=== PATIENT | female | born 1965 | race Caucasian/White ===

== ENCOUNTER 2016-11-13 08:22 | Outpatient (RCR) | payer BC ==
--- OUTSIDE RECORDS SUMMARY | 2016-08-19 08:48 | XMS REPORT | Continuity of Care Document ---
Author Author [facility] Organization [facility] Address Unknown Phone Unavailable Care Team Providers Care Poster Name Role Phone Keara Espinoza PCP [phone] Source Comments Some departments are not documenting in the electronic medical record. If you do not see the information that you expected, contact Release of Information in the Health Information Management department at [phone] for further assistance in locating additional records.[facility] Active Allergies and Adverse Reactions Allergen Noted Date Severity Reactions Comments Adhesive Tape (Rosins) 03/07/2016 High SEE COMMENTS steri strips - blisters under and around strips Current Medications Prescription Sig. Disp. Refills Start End Date Status Date hydrochlorothiazide Take 25 mg by mouth Active (HYDRODIURIL) 25 mg daily. tablet POTASSIUM CHLORIDE Take 20 mEq by mouth Active (KLOR-CON M20 PO) twice daily. MULTIVITAMIN/IRON/FOLIC Take 1 Tab by mouth Active ACID (CENTRUM COMPLETE daily. PO) CALCIUM-VITAMIN D3 PO Take 500 mg by mouth Active twice daily. Oscal Calcium + Vitamin D3 oxyCODONE/acetaminophen Take 1-2 Tabs by mouth 40 Tab 0 03/08/20 Active (PERCOCET; ENDOCET; every 4 hours as needed 16 ROXICET) 5/325 mg tablet Earliest Fill Date: 03/08/16 senna (SENNA) 8.6 mg Take 1 Tab by mouth 90 Tab 3 03/08/20 Active tablet daily. 16 traMADol (ULTRAM) 50 mg Take 1 Tab by mouth every 30 Tab 0 03/08/20 Active tablet 6 hours as needed for 16 Pain. DESOGESTREL-ETHINYL Take by mouth daily. Active ESTRADIOL (ENSKYCE PO) aspirin EC 81 mg tablet Take 81 mg by mouth Active daily. 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 Left, grade 3, triple negative IDC (ER/[place] 0%, HER2 0+, Ki-67 63%) at 10:00 with an involved axillary lymph node, dx 09/2015 2. Billiesk negative HISTORY: Ms. Gamez is a female who presented to the [facility] on 11/08/2015 at age 50 for evaluation of left breast cancer. She first felt a left breast lump in August 2015. She saw her PCP in September 2015 who sent her for imaging. Left breast sono-guided biopsy at 6:00 10/11/15 ([place]) revealed fibrocystic breast tissue. Left breast sono-guided biopsy at 10:00 10/11/15 ([place]) revealed grade 3, triple negative invasive ductal carcinoma. Left axilla sono-guided biopsy 10/11/15 ([place]) revealed metastatic carcinoma. PET scan 10/23/15 ([place]) revealed no evidence of metastasis. She has a history of a left breast excision in 2001 which was a fibroadenoma. Ms. Gamez met with a medical oncologist closer to home who is planning neoadjuvant AC followed by taxotere/carbo. Genetic counseling/testing has been recommended and is scheduled in [place]. Ms. Gamez underwent left RSL lumpectomy/SLNB on 03/07/16. Final pathology revealed 1.8 cm tumor bed with 1.5 cm residual grade 3 triple negative IDC, largest foci was 6 mm; 5-60% residual viable cellularity; all margins over 2 mm; LVI absent; 1/22 positive ALNs with 2 mm metastasis, treatment effect present, no extranodal extension. BREAST IMAGING: Mammogram: -- Left diagnostic mammogram 10/06/15 ([place]) revealed a 2.4 cm rounded mass in the medial left breast corresponding with the patient's palpable finding. -- Bilateral diagnostic mammogram 11/08/15 () revealed in the left breast at 9-10:00 there was an ill-defined mass consistent with known malignancy measuring 2.6 cm. Inferiorly at 6:00 there was a clip marker from reported recent biopsy of benign area of fibrocystic change. An enlarged left axillary lymph node was partially visualized. The right breast appeared normal however, there were prominent right axillary lymph nodes. Ultrasound: -- Left breast ultrasound 10/06/15 ([place]) revealed a 1.5 cm hypoechoic mass at 10:00, 6 cm FTN in the area of the patient's palpable abnormality. There was an 8 mm somewhat lobulated hypoechoic mass at 6:00, 2 cm FTN. There was a 2 cm left axillary lymph node. -- Bilteral breast ultrasound 11/08/15 () revealed in the right axilla there was a single prominent lymph node with cortical thickness measuring up to 5 mm consistent with the appearance on mammography. This was mildly suspicious and ultrasound-guided biopsy is recommended. The remainder of the right axilla appeared normal. The known malignant mass at 10:00, 6 cm FTN measured 2.7 cm. The left axilla demonstrated multiple abnormal appearing lymph nodes. A clip marker was not identified with any of the lymph nodes. Reportedly, the patient's had prior positive biopsy in the left axilla. REPRODUCTIVE HEALTH: Age at first Menarche: 14 Age at First Live : 20 Age at Menopause: Premenopausal : 2 Para: 2 : N/A PROCEDURE: Left RSL lumpectomy/ALND, 03/07/16 PERTINENT PMH: HTN FAMILY HISTORY: No family history of breast, ovarian, prostate or pancreatic cancer PHYSICAL EXAM on PRESENTATION: Right - No palpable breast masses. No skin, nipple, or areolar change. Left - 3 cm mass at 10:00, 4 cm FTN. Palpable left axillary lymph node. No supraclavicular or right axillary adenopathy. MEDICAL ONCOLOGY: Dr. Joel Grimaldo PRESENT THERAPY: Neoadjuvant taxotere/carbo started 10/30/15 followed by DDAC finished 02/05/16 REFERRED BY: Dr. Joel Grimaldo Most Recent Encounters Date Type Specialty Providers Description 08/12/2016 Telephone Oncology Caitlyn Brito MD Appointment 07/19/2016 Orders Only Oncology Caitlyn Brito MD 07/19/2016 Telephone Oncology Caitlyn Brito MD Heme/Onc Care 07/18/2016 Precert Oncology Caitlyn Brito MD 07/18/2016 Orders Only Oncology Caitlyn Brito MD Metastatic breast cancer (HCC) (Primary Dx) 07/18/2016 Telephone Oncology Caitlyn Brito MD Appointment Request 07/17/2016 Telephone Oncology Caitlyn Brito MD Patient Questions 07/15/2016 Telephone Oncology Ck Khan DO Breast Cancer - recurrence 07/15/2016 Telephone Breast Clinic / Breast Bina Brewer RN Other Center 07/10/2016 Orders Only Oncology Caitlyn Brito MD 06/11/2016 Telephone Oncology Caitlyn Brito MD Research 06/11/2016 Telephone Oncology Caitlyn Brito MD Appointment 06/10/2016 Office Visit Oncology Caitlyn Brito MD Carcinoma of left breast metastatic to axillary lymph node (HCC) (Primary Dx) 06/10/2016 Nurse Only Breast Clinic / Breast Ck Khan DO Malignant neoplasm of Center Bina Brewer RN left female breast, unspecified site of breast (HCC) (Primary Dx); At risk for lymphedema 06/06/2016 Telephone Oncology Ck Khan DO Breast Cancer Social History Tobacco Use Types Packs/Day Years Used Date Never Smoker Smokeless Tobacco: Never Used Alcohol Use Drinks/Week oz/Week Comments No 0 Standard 0.0 drinks or equivalent Last Filed Vital Signs Vital Sign Reading Time Taken Blood Pressure 150/88 06/10/2016 10:54 AM CDT Pulse 103 06/10/2016 10:54 AM CDT Temperature 37.2 C (99 F) 06/10/2016 10:54 AM CDT Respiratory Rate 16 06/10/2016 10:54 AM CDT Height 1.676 m (5' 5.98") 06/10/2016 10:54 AM CDT Weight 103.511 kg (228 lb 3.2 06/10/2016 10:54 AM CDT oz) Body Mass Index 36.85 06/10/2016 10:54 AM CDT Oxygen Saturation 100% 04/12/2016 3:15 PM CDT Plan of Care Date Type Specialty Providers Description 09/16/2016 Appointment Oncology Caitlyn Brito MD [address] [facility] [address] [place] [address] [phone] (Fax) 09/16/2016 Appointment Breast Clinic / Breast Bina Brewer RN [place] 09/16/2016 Appointment Radiology Ck Khan DO [address] [place] [address] [phone] (Fax) 09/16/2016 Appointment Breast Clinic / Breast Ck Khan DO Center [address] [facility] [address] [place] [address] [phone] (Fax) Health Maintenance Due Date Last Done Comments Physical (Comprehensive) 1974 Exam Pertussis Vaccine 1978 Tetanus Vaccine 1984 Cervical Cancer Screening 1988 Influenza Vaccine 07/18/2016 Breast Cancer Screening 11/08/2017 11/08/2015 Results from Last 3 Months Not on file
[2016-08-19 09:06] LABS: BASOPHILS % (AUTO) 0 % (0-10); EOSINOPHILS # (AUTO) 0.1 10^3/uL (0.0-0.3); EOSINOPHILS % (AUTO) 1 % (0-10); LYMPHOCYTES % (AUTO) 21 % (12-44); MEAN CORPUSCULAR HGB CONC 34 G/DL (32-36); MEAN CORPUSCULAR VOLUME 96 FL (80-99); MEAN PLATELET VOLUME 9.4 FL (7.4-10.4); MONOCYTES # (AUTO) 0.6 X 10^3 (0.0-1.0); MONOCYTES % (AUTO) 13 % (0-12); NEUTROPHILS # (AUTO) 3.2 X 10^3 (1.8-7.8); NEUTROPHILS % (AUTO) 65 % (42-75); PLATELET COUNT 321 10^3/uL (130-400); RED BLOOD COUNT 3.82 10^6/uL (4.35-5.85); RED CELL DISTRIBUTION WIDTH 14.9 % (10.0-14.5); WHITE BLOOD COUNT 4.9 10^3/uL (4.3-11.0)
[2016-08-19 09:12] LABS: MEAN CORPUSCULAR HEMOGLOBIN 32 PG (25-34)
[2016-08-19 09:55] LABS: ALANINE AMINOTRANSFERASE 17 U/L (0-55); ALBUMIN 3.8 G/DL (3.2-4.5); ANION GAP 12 MMOL/L (5-14); ASPARTATE AMINO TRANSFERASE 16 U/L (5-34); BILIRUBIN,TOTAL 0.4 MG/DL (0.1-1.0); BLOOD UREA NITROGEN 14 MG/DL (7-18); BUN/CREATININE RATIO 20; CALCIUM 8.8 MG/DL (8.5-10.1); CARBON DIOXIDE 19 MMOL/L (21-32); CHLORIDE 106 MMOL/L (98-107); CREATININE SERUM 0.71 MG/DL (0.60-1.30); GFR ESTIMATED > 60; GLUCOSE 110 MG/DL (70-105); POTASSIUM 3.7 MMOL/L (3.6-5.0); SODIUM 137 MMOL/L (135-145); TOTAL PROTEIN 6.5 G/DL (6.4-8.2)
[2016-08-26 15:50] LABS: BASOPHILS % (AUTO) 0 % (0-10); EOSINOPHILS % (AUTO) 0 % (0-10); LYMPHOCYTES # (AUTO) 1.3 X 10^3 (1.0-4.0); LYMPHOCYTES % (AUTO) 40 % (12-44); MEAN CORPUSCULAR HEMOGLOBIN 33 PG (25-34); MEAN CORPUSCULAR HGB CONC 34 G/DL (32-36); MEAN CORPUSCULAR VOLUME 97 FL (80-99); MEAN PLATELET VOLUME 9.1 FL (7.4-10.4); MONOCYTES # (AUTO) 0.6 X 10^3 (0.0-1.0); MONOCYTES % (AUTO) 17 % (0-12); NEUTROPHILS # (AUTO) 1.4 X 10^3 (1.8-7.8); NEUTROPHILS % (AUTO) 42 % (42-75); PLATELET COUNT 266 10^3/uL (130-400); WHITE BLOOD COUNT 3.2 10^3/uL (4.3-11.0)
[2016-08-26 16:23] LABS: ANION GAP 14 MMOL/L (5-14); BLOOD UREA NITROGEN 9 MG/DL (7-18); BUN/CREATININE RATIO 13; CALCIUM 8.9 MG/DL (8.5-10.1); CARBON DIOXIDE 20 MMOL/L (21-32); CHLORIDE 104 MMOL/L (98-107); CREATININE SERUM 0.72 MG/DL (0.60-1.30); GFR ESTIMATED > 60; GLUCOSE 99 MG/DL (70-105); POTASSIUM 3.6 MMOL/L (3.6-5.0); SODIUM 138 MMOL/L (135-145)
[2016-09-02 08:57] LABS: BASOPHILS % (AUTO) 0 % (0-10); EOSINOPHILS % (AUTO) 0 % (0-10); LYMPHOCYTES # (AUTO) 0.9 X 10^3 (1.0-4.0); LYMPHOCYTES % (AUTO) 30 % (12-44); MEAN CORPUSCULAR HEMOGLOBIN 33 PG (25-34); MEAN CORPUSCULAR HGB CONC 34 G/DL (32-36); MEAN CORPUSCULAR VOLUME 97 FL (80-99); MEAN PLATELET VOLUME 9.3 FL (7.4-10.4); MONOCYTES # (AUTO) 0.5 X 10^3 (0.0-1.0); MONOCYTES % (AUTO) 16 % (0-12); NEUTROPHILS # (AUTO) 1.7 X 10^3 (1.8-7.8); NEUTROPHILS % (AUTO) 53 % (42-75); PLATELET COUNT 150 10^3/uL (130-400); RED BLOOD COUNT 3.59 10^6/uL (4.35-5.85); RED CELL DISTRIBUTION WIDTH 14.9 % (10.0-14.5); WHITE BLOOD COUNT 3.2 10^3/uL (4.3-11.0)
[2016-09-02 09:23] LABS: ANION GAP 9 MMOL/L (5-14); BLOOD UREA NITROGEN 9 MG/DL (7-18); BUN/CREATININE RATIO 14; CARBON DIOXIDE 25 MMOL/L (21-32); CHLORIDE 105 MMOL/L (98-107); CREATININE SERUM 0.66 MG/DL (0.60-1.30); GFR ESTIMATED > 60; GLUCOSE 93 MG/DL (70-105); POTASSIUM 3.8 MMOL/L (3.6-5.0); SODIUM 139 MMOL/L (135-145)
[2016-09-09 08:48] LABS: BASOPHILS % (AUTO) 0 % (0-10); EOSINOPHILS % (AUTO) 0 % (0-10); LYMPHOCYTES # (AUTO) 0.9 X 10^3 (1.0-4.0); LYMPHOCYTES % (AUTO) 21 % (12-44); MEAN CORPUSCULAR HEMOGLOBIN 34 PG (25-34); MEAN CORPUSCULAR HGB CONC 34 G/DL (32-36); MEAN CORPUSCULAR VOLUME 98 FL (80-99); MEAN PLATELET VOLUME 9.5 FL (7.4-10.4); MONOCYTES # (AUTO) 0.5 X 10^3 (0.0-1.0); MONOCYTES % (AUTO) 12 % (0-12); NEUTROPHILS # (AUTO) 2.8 X 10^3 (1.8-7.8); NEUTROPHILS % (AUTO) 67 % (42-75); PLATELET COUNT 210 10^3/uL (130-400); WHITE BLOOD COUNT 4.1 10^3/uL (4.3-11.0)
[2016-09-09 09:15] LABS: ANION GAP 9 MMOL/L (5-14); BLOOD UREA NITROGEN 11 MG/DL (7-18); BUN/CREATININE RATIO 17; CALCIUM 8.9 MG/DL (8.5-10.1); CARBON DIOXIDE 23 MMOL/L (21-32); CHLORIDE 106 MMOL/L (98-107); CREATININE SERUM 0.65 MG/DL (0.60-1.30); GFR ESTIMATED > 60; GLUCOSE 100 MG/DL (70-105); POTASSIUM 3.6 MMOL/L (3.6-5.0); SODIUM 138 MMOL/L (135-145)
[2016-09-18 08:52] LABS: BASOPHILS % (AUTO) 1 % (0-10); EOSINOPHILS # (AUTO) 0.1 10^3/uL (0.0-0.3); EOSINOPHILS % (AUTO) 2 % (0-10); LYMPHOCYTES # (AUTO) 0.9 X 10^3 (1.0-4.0); LYMPHOCYTES % (AUTO) 17 % (12-44); MEAN CORPUSCULAR HEMOGLOBIN 34 PG (25-34); MEAN CORPUSCULAR HGB CONC 34 G/DL (32-36); MEAN CORPUSCULAR VOLUME 100 FL (80-99); MEAN PLATELET VOLUME 9.4 FL (7.4-10.4); MONOCYTES # (AUTO) 0.6 X 10^3 (0.0-1.0); MONOCYTES % (AUTO) 12 % (0-12); NEUTROPHILS # (AUTO) 3.7 X 10^3 (1.8-7.8); NEUTROPHILS % (AUTO) 69 % (42-75); PLATELET COUNT 393 10^3/uL (130-400); RED BLOOD COUNT 3.73 10^6/uL (4.35-5.85); RED CELL DISTRIBUTION WIDTH 16.7 % (10.0-14.5); WHITE BLOOD COUNT 5.3 10^3/uL (4.3-11.0)
[2016-09-18 09:16] LABS: ALANINE AMINOTRANSFERASE 20 U/L (0-55); ALBUMIN 3.8 G/DL (3.2-4.5); ANION GAP 8 MMOL/L (5-14); ASPARTATE AMINO TRANSFERASE 18 U/L (5-34); BILIRUBIN,TOTAL 0.3 MG/DL (0.1-1.0); BLOOD UREA NITROGEN 13 MG/DL (7-18); BUN/CREATININE RATIO 18; CALCIUM 8.6 MG/DL (8.5-10.1); CARBON DIOXIDE 25 MMOL/L (21-32); CHLORIDE 106 MMOL/L (98-107); CREATININE SERUM 0.71 MG/DL (0.60-1.30); GFR ESTIMATED > 60; GLUCOSE 102 MG/DL (70-105); POTASSIUM 3.7 MMOL/L (3.6-5.0); SODIUM 139 MMOL/L (135-145); TOTAL PROTEIN 6.5 G/DL (6.4-8.2)
[2016-09-25 09:04] LABS: BASOPHILS % (AUTO) 0 % (0-10); EOSINOPHILS % (AUTO) 1 % (0-10); LYMPHOCYTES # (AUTO) 0.9 X 10^3 (1.0-4.0); LYMPHOCYTES % (AUTO) 20 % (12-44); MEAN CORPUSCULAR HEMOGLOBIN 34 PG (25-34); MEAN CORPUSCULAR HGB CONC 34 G/DL (32-36); MEAN CORPUSCULAR VOLUME 99 FL (80-99); MEAN PLATELET VOLUME 9.5 FL (7.4-10.4); MONOCYTES # (AUTO) 0.6 X 10^3 (0.0-1.0); MONOCYTES % (AUTO) 13 % (0-12); NEUTROPHILS % (AUTO) 66 % (42-75); PLATELET COUNT 238 10^3/uL (130-400); RED BLOOD COUNT 3.73 10^6/uL (4.35-5.85); RED CELL DISTRIBUTION WIDTH 15.6 % (10.0-14.5); WHITE BLOOD COUNT 4.5 10^3/uL (4.3-11.0)
[2016-09-25 09:30] LABS: ANION GAP 12 MMOL/L (5-14); BLOOD UREA NITROGEN 11 MG/DL (7-18); BUN/CREATININE RATIO 15; CARBON DIOXIDE 23 MMOL/L (21-32); CHLORIDE 104 MMOL/L (98-107); CREATININE SERUM 0.71 MG/DL (0.60-1.30); GFR ESTIMATED > 60; GLUCOSE 95 MG/DL (70-105); POTASSIUM 3.8 MMOL/L (3.6-5.0); SODIUM 139 MMOL/L (135-145)
[2016-10-02 15:30] LABS: BASOPHILS % (AUTO) 0 % (0-10); EOSINOPHILS % (AUTO) 0 % (0-10); LYMPHOCYTES # (AUTO) 1.2 X 10^3 (1.0-4.0); LYMPHOCYTES % (AUTO) 19 % (12-44); MEAN CORPUSCULAR HEMOGLOBIN 34 PG (25-34); MEAN CORPUSCULAR HGB CONC 34 G/DL (32-36); MEAN CORPUSCULAR VOLUME 100 FL (80-99); MEAN PLATELET VOLUME 9.6 FL (7.4-10.4); MONOCYTES # (AUTO) 0.9 X 10^3 (0.0-1.0); MONOCYTES % (AUTO) 15 % (0-12); NEUTROPHILS # (AUTO) 4.2 X 10^3 (1.8-7.8); NEUTROPHILS % (AUTO) 66 % (42-75); PLATELET COUNT 138 10^3/uL (130-400); RED BLOOD COUNT 3.47 10^6/uL (4.35-5.85); RED CELL DISTRIBUTION WIDTH 16.3 % (10.0-14.5); WHITE BLOOD COUNT 6.4 10^3/uL (4.3-11.0)
[2016-10-02 15:52] LABS: ANION GAP 9 MMOL/L (5-14); BLOOD UREA NITROGEN 9 MG/DL (7-18); BUN/CREATININE RATIO 10; CALCIUM 8.9 MG/DL (8.5-10.1); CARBON DIOXIDE 25 MMOL/L (21-32); CHLORIDE 104 MMOL/L (98-107); CREATININE SERUM 0.88 MG/DL (0.60-1.30); GFR ESTIMATED > 60; GLUCOSE 121 MG/DL (70-105); POTASSIUM 3.6 MMOL/L (3.6-5.0); SODIUM 138 MMOL/L (135-145)
[2016-10-09 08:53] LABS: BASOPHILS % (AUTO) 1 % (0-10); EOSINOPHILS % (AUTO) 1 % (0-10); LYMPHOCYTES # (AUTO) 0.8 X 10^3 (1.0-4.0); LYMPHOCYTES % (AUTO) 23 % (12-44); MEAN CORPUSCULAR HEMOGLOBIN 34 PG (25-34); MEAN CORPUSCULAR HGB CONC 34 G/DL (32-36); MEAN CORPUSCULAR VOLUME 100 FL (80-99); MEAN PLATELET VOLUME 9.4 FL (7.4-10.4); MONOCYTES # (AUTO) 0.6 X 10^3 (0.0-1.0); MONOCYTES % (AUTO) 17 % (0-12); NEUTROPHILS # (AUTO) 2.1 X 10^3 (1.8-7.8); NEUTROPHILS % (AUTO) 59 % (42-75); PLATELET COUNT 235 10^3/uL (130-400); RED CELL DISTRIBUTION WIDTH 16.5 % (10.0-14.5); WHITE BLOOD COUNT 3.5 10^3/uL (4.3-11.0)
[2016-10-09 09:13] LABS: ANION GAP 10 MMOL/L (5-14); BLOOD UREA NITROGEN 11 MG/DL (7-18); BUN/CREATININE RATIO 16; CALCIUM 8.9 MG/DL (8.5-10.1); CARBON DIOXIDE 24 MMOL/L (21-32); CHLORIDE 104 MMOL/L (98-107); GFR ESTIMATED > 60; GLUCOSE 88 MG/DL (70-105); POTASSIUM 3.7 MMOL/L (3.6-5.0); SODIUM 138 MMOL/L (135-145)
[2016-10-16 10:27] LABS: BASOPHILS % (AUTO) 0 % (0-10); EOSINOPHILS % (AUTO) 1 % (0-10); LYMPHOCYTES # (AUTO) 0.8 X 10^3 (1.0-4.0); LYMPHOCYTES % (AUTO) 11 % (12-44); MEAN CORPUSCULAR HEMOGLOBIN 35 PG (25-34); MEAN CORPUSCULAR HGB CONC 34 G/DL (32-36); MEAN CORPUSCULAR VOLUME 101 FL (80-99); MEAN PLATELET VOLUME 9.1 FL (7.4-10.4); MONOCYTES # (AUTO) 0.8 X 10^3 (0.0-1.0); MONOCYTES % (AUTO) 12 % (0-12); NEUTROPHILS # (AUTO) 5.6 X 10^3 (1.8-7.8); NEUTROPHILS % (AUTO) 77 % (42-75); PLATELET COUNT 366 10^3/uL (130-400); RED BLOOD COUNT 3.66 10^6/uL (4.35-5.85); RED CELL DISTRIBUTION WIDTH 16.4 % (10.0-14.5); WHITE BLOOD COUNT 7.2 10^3/uL (4.3-11.0)
[2016-10-16 10:53] LABS: ALANINE AMINOTRANSFERASE 26 U/L (0-55); ALBUMIN 3.8 G/DL (3.2-4.5); ANION GAP 10 MMOL/L (5-14); ASPARTATE AMINO TRANSFERASE 26 U/L (5-34); BILIRUBIN,TOTAL 0.3 MG/DL (0.1-1.0); BLOOD UREA NITROGEN 10 MG/DL (7-18); BUN/CREATININE RATIO 14; CALCIUM 9.1 MG/DL (8.5-10.1); CARBON DIOXIDE 24 MMOL/L (21-32); CHLORIDE 104 MMOL/L (98-107); CREATININE SERUM 0.71 MG/DL (0.60-1.30); GFR ESTIMATED > 60; GLUCOSE 112 MG/DL (70-105); POTASSIUM 3.8 MMOL/L (3.6-5.0); SODIUM 138 MMOL/L (135-145); TOTAL PROTEIN 6.4 G/DL (6.4-8.2)
[2016-10-28 08:32] LABS: BASOPHILS % (AUTO) 0 % (0-10); EOSINOPHILS # (AUTO) 0.1 10^3/uL (0.0-0.3); EOSINOPHILS % (AUTO) 1 % (0-10); LYMPHOCYTES # (AUTO) 1.1 X 10^3 (1.0-4.0); LYMPHOCYTES % (AUTO) 17 % (12-44); MEAN CORPUSCULAR HEMOGLOBIN 34 PG (25-34); MEAN CORPUSCULAR HGB CONC 33 G/DL (32-36); MEAN CORPUSCULAR VOLUME 102 FL (80-99); MEAN PLATELET VOLUME 9.7 FL (7.4-10.4); MONOCYTES # (AUTO) 1.1 X 10^3 (0.0-1.0); MONOCYTES % (AUTO) 17 % (0-12); NEUTROPHILS # (AUTO) 4.2 X 10^3 (1.8-7.8); NEUTROPHILS % (AUTO) 64 % (42-75); PLATELET COUNT 185 10^3/uL (130-400); RED BLOOD COUNT 3.77 10^6/uL (4.35-5.85); RED CELL DISTRIBUTION WIDTH 15.6 % (10.0-14.5); WHITE BLOOD COUNT 6.5 10^3/uL (4.3-11.0)
[2016-10-28 08:40] LABS: ANION GAP 11 MMOL/L (5-14); BLOOD UREA NITROGEN 17 MG/DL (7-18); BUN/CREATININE RATIO 24; CALCIUM 8.9 MG/DL (8.5-10.1); CARBON DIOXIDE 23 MMOL/L (21-32); CHLORIDE 105 MMOL/L (98-107); CREATININE SERUM 0.72 MG/DL (0.60-1.30); GFR ESTIMATED > 60; GLUCOSE 90 MG/DL (70-105); POTASSIUM 3.9 MMOL/L (3.6-5.0); SODIUM 139 MMOL/L (135-145)
[2016-11-04 08:32] LABS: BASOPHILS % (AUTO) 1 % (0-10); EOSINOPHILS # (AUTO) 0.1 10^3/uL (0.0-0.3); EOSINOPHILS % (AUTO) 1 % (0-10); LYMPHOCYTES # (AUTO) 0.8 X 10^3 (1.0-4.0); LYMPHOCYTES % (AUTO) 19 % (12-44); MEAN CORPUSCULAR HEMOGLOBIN 34 PG (25-34); MEAN CORPUSCULAR HGB CONC 34 G/DL (32-36); MEAN CORPUSCULAR VOLUME 102 FL (80-99); MEAN PLATELET VOLUME 9.5 FL (7.4-10.4); MONOCYTES # (AUTO) 0.8 X 10^3 (0.0-1.0); MONOCYTES % (AUTO) 18 % (0-12); NEUTROPHILS # (AUTO) 2.5 X 10^3 (1.8-7.8); NEUTROPHILS % (AUTO) 61 % (42-75); PLATELET COUNT 122 10^3/uL (130-400); RED BLOOD COUNT 3.53 10^6/uL (4.35-5.85); RED CELL DISTRIBUTION WIDTH 14.8 % (10.0-14.5); WHITE BLOOD COUNT 4.1 10^3/uL (4.3-11.0)
[2016-11-04 08:52] LABS: ANION GAP 8 MMOL/L (5-14); BLOOD UREA NITROGEN 12 MG/DL (7-18); BUN/CREATININE RATIO 18; CALCIUM 8.8 MG/DL (8.5-10.1); CARBON DIOXIDE 24 MMOL/L (21-32); CHLORIDE 106 MMOL/L (98-107); CREATININE SERUM 0.65 MG/DL (0.60-1.30); GFR ESTIMATED > 60; GLUCOSE 91 MG/DL (70-105); POTASSIUM 3.8 MMOL/L (3.6-5.0); SODIUM 138 MMOL/L (135-145)
[~2016-11-13] VITALS: Ht 171.4 cm; Wt 104.3 kg
[~2016-11-13 08:22] MED LIST: ASPI-586 PO; BCP PO; CALC-823 PO; FOLI1TAB6 PO; GEMCITABINE HCL (GENERIC) 2,000 MG in NS (IVPB) CANCER CENTER 100 ML IV SCH; HYDR-3454 PO; HYDR25TA4 PO; NS IV 500 ML (CANCER CENTER) 500 ML ONE; NS IV 500 ML (CANCER CENTER) IV SCH; ONDANSETRON MDV (CANCER CENTER 8 MG, DEXAMETHASONE INJ (CANCER CTR) 4 MG in NS (IVPB) C... IV SCH; POTA20TA8 PO
[2016-11-13 08:51] LABS: BASOPHILS % (AUTO) 0 % (0-10); EOSINOPHILS # (AUTO) 0.1 10^3/uL (0.0-0.3); EOSINOPHILS % (AUTO) 2 % (0-10); LYMPHOCYTES # (AUTO) 0.7 X 10^3 (1.0-4.0); LYMPHOCYTES % (AUTO) 17 % (12-44); MEAN CORPUSCULAR HEMOGLOBIN 35 PG (25-34); MEAN CORPUSCULAR HGB CONC 35 G/DL (32-36); MEAN CORPUSCULAR VOLUME 102 FL (80-99); MEAN PLATELET VOLUME 9.8 FL (7.4-10.4); MONOCYTES # (AUTO) 0.9 X 10^3 (0.0-1.0); MONOCYTES % (AUTO) 20 % (0-12); NEUTROPHILS # (AUTO) 2.8 X 10^3 (1.8-7.8); NEUTROPHILS % (AUTO) 61 % (42-75); PLATELET COUNT 189 10^3/uL (130-400); RED BLOOD COUNT 3.42 10^6/uL (4.35-5.85); RED CELL DISTRIBUTION WIDTH 15.4 % (10.0-14.5); WHITE BLOOD COUNT 4.5 10^3/uL (4.3-11.0)
[2016-11-13 09:08] LABS: ANION GAP 11 MMOL/L (5-14); BLOOD UREA NITROGEN 15 MG/DL (7-18); BUN/CREATININE RATIO 21; CALCIUM 8.7 MG/DL (8.5-10.1); CARBON DIOXIDE 21 MMOL/L (21-32); CHLORIDE 104 MMOL/L (98-107); GFR ESTIMATED > 60; GLUCOSE 87 MG/DL (70-105); POTASSIUM 4.1 MMOL/L (3.6-5.0); SODIUM 136 MMOL/L (135-145)
[2017-03-07] MEDS ORDERED: OXYC-188 PO (08:17)
[2017-03-07] MEDS ORDERED: OXC10TCR PO (08:17)
== END 2016-11-17 | disposition home or self-care (01) ==
LOC: ONC 08:22
PROVIDERS: ATTEND Internal Medicine Hematology & Oncology
DX: Z51.11 Encounter for antineoplastic chemotherapy (principal); C50.212 Malignant neoplasm of upper-inner quadrant of left female breast; I10 Essential (primary) hypertension; Z17.1 Estrogen receptor negative status [ER-]; Z79.899 Other long term (current) drug therapy; Z76.89 Persons encountering health services in other specified circumstances
CPT/HCPCS: 36591; 80048; 80053; 85025; 86300; 96375; 96413; 99213

== ENCOUNTER 2016-12-23 10:51 | Outpatient (RCR) | payer BC ==
--- OUTSIDE RECORDS SUMMARY | 2016-11-20 08:50 | XMS REPORT | Continuity of Care Document ---
Author Author [facility] Organization [facility] Address Unknown Phone Unavailable Care Team Providers Care Insurance Sales Associate Name Role Phone Keara Espinoza PCP [phone] Source Comments Some departments are not documenting in the electronic medical record. If you do not see the information that you expected, contact Release of Information in the Health Information Management department at [phone] for further assistance in locating additional records.[facility] Active Allergies and Adverse Reactions Allergen Noted [...] Take 81 mg by mouth Active daily. omeprazole DR(+) Take 20 mg by mouth daily Active (PRILOSEC) 20 mg capsule before breakfast. 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 Left, grade 3, triple negative IDC (ER/[place] 0%, HER2 0+, Ki-67 63%) at 10:00 with an involved axillary lymph node, dx 09/2015 2. myRisk negative 3. 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 Gamez is a female who presented to the Breast Cancer Clinic on 11/08/2015 at age 50 for evaluation of left breast cancer. She first felt a left breast lump in August 2015. She saw her PCP in September 2015 who sent her for imaging. Left breast sono-guided biopsy at 6:00 10/11/15 ([place]) revealed fibrocystic breast tissue. Left breast sono-guided biopsy at 10:00 10/11/15 ([place]) revealed grade 3, triple negative invasive ductal carcinoma. Left axilla sono-guided biopsy 10/11/15 ([place]) revealed metastatic carcinoma. PET scan 10/23/15 ([place]) revealed no evidence of metastasis. She has a history of a left breast excision in 2001 which was a fibroadenoma. Ms. Gamez met with a medical oncologist closer to home who is planning neoadjuvant AC followed by taxotere/carbo. Genetic counseling/testing has been recommended and is scheduled in [place]. Ms. Gamez underwent left RSL lumpectomy/SLNB on 03/07/16. Final pathology revealed 1.8 cm tumor bed with 1.5 cm residual grade 3 triple negative IDC, largest foci was 6 mm; 5-60% residual viable cellularity; all margins over 2 mm; LVI absent; 1/22 positive ALNs with 2 mm metastasis, treatment effect present, no extranodal extension. Ms. Gamez finished radiation in [place], [place] on 05/31/16. At the end of May 2016 she had come to see Bina Brewer RN in the lymphedema clinic due to lymphedema and deep massage was recommended. While performing massage, Ms. Gamez felt a palpable supraclavicular mass. She was sent for ultrasound which showed 2 abnormal supraclavicular lymph nodes as well as a high level 2 axillary lymph node and infraclavicular lymph node. Supraclavicular sono-guided biopsy 07/01/16 ([place], [place]) revealed metastatic carcinoma. Her tumor was sent for genetic testing and Gemzar was recommended. She was going to start the triple negative vaccine trial, but was unable to due to having failed adjuvant chemotherapy. She will start this if Gemzar does not work. BREAST IMAGING: Mammogram: -- Left diagnostic mammogram 10/06/15 ([place]) revealed a 2.4 cm rounded mass in the medial left breast corresponding with the patient's palpable finding. -- Bilateral diagnostic mammogram 11/08/15 ([facility]) revealed in the left breast at 9-10:00 [...] nodes. Ultrasound: -- Left breast ultrasound 10/06/15 ([place]) revealed a 1.5 cm hypoechoic mass at 10:00, 6 cm FTN in the area of the patient's palpable abnormality. There was an 8 mm somewhat lobulated hypoechoic mass at 6:00, 2 cm FTN. There was a 2 cm left axillary lymph node. -- Bilteral breast ultrasound 11/08/15 ([facility]) revealed in the right axilla there was [...] prior positive biopsy in the left axilla. Other: -- CT CAP 06/24/16 ([place], [place]) revealed a 1.3 x 1.1 cm enlarged supraclavicular lymph node. There was an additional lymph node located more medially that measured 1 cm. A 1.4 cm level 2 axillary lymph node was noted. Surgical clips were noted in the left axilla and medial breast. There were enlarged lymph nodes in the left axilla up to 1.6 cm. There were borderline mediastinal prevascular lymph nodes up to 1.1 cm. Left hilar lymph nodes up to 1 cm with similar appearing right hilar lymph nodes. The abdomen was negative. There was no osseous metastasis. REPRODUCTIVE HEALTH: Age at first Menarche: 14 [...] taxotere/carbo started 10/30/15 followed by DDAC finished 02/05/16; started Gemzar 07/2016 REFERRED BY: Dr. Joel Grimaldo Most Recent Encounters Date Type Specialty Providers Description 09/16/2016 Office Visit Breast Clinic / Breast Ck Khan DO Carcinoma of left breast Center metastatic to axillary lymph node (Primary Dx) 09/16/2016 Nurse Only Breast Clinic / Breast Ck Khan DO At risk for lymphedema Center Bina Brewer RN (Primary Dx) 09/16/2016 Office Visit Oncology O'Caitlyn Pfeiffer MD Metastatic breast cancer (HCC) (Primary Dx) Social History Tobacco Use Types Packs/Day Years Used Date Never Smoker Smokeless Tobacco: Never Used Alcohol Use Drinks/Week oz/Week Comments No 0 Standard 0.0 drinks or equivalent Last Filed Vital Signs Vital Sign Reading Time Taken Blood Pressure 147/97 09/16/2016 2:21 PM CDT Pulse 110 09/16/2016 2:21 PM CDT Temperature 37.1 C (98.7 F) 09/16/2016 2:21 PM CDT Respiratory Rate 16 09/16/2016 2:21 PM CDT Height 1.676 m (5' 5.98") 09/16/2016 2:21 PM CDT Weight 104.8 kg (231 lb 0.7 oz) 09/16/2016 2:21 PM CDT Body Mass Index 37.31 09/16/2016 2:21 PM CDT Oxygen Saturation 99% 09/16/2016 2:21 PM CDT Plan of Care Date Type Specialty Providers Description 03/24/2017 Appointment Breast Clinic / Breast Bina Brewer RN Center 03/24/2017 Appointment Breast Clinic / Breast Ck Khan DO Center [address] [facility] [address] [place] [address] [phone] (Fax) Health Maintenance Due Date Last Done Comments Physical (Comprehensive) 1974 Exam Pertussis Vaccine 1978 Tetanus Vaccine 1984 Cervical Cancer Screening 1988 Influenza Vaccine 07/18/2016 Breast Cancer Screening 11/08/2017 11/08/2015 Results from Last 3 Months Not on file
[2016-11-20 09:04] LABS: BASOPHILS % (AUTO) 0 % (0-10); EOSINOPHILS # (AUTO) 0.1 10^3/uL (0.0-0.3); EOSINOPHILS % (AUTO) 1 % (0-10); LYMPHOCYTES # (AUTO) 1.2 X 10^3 (1.0-4.0); LYMPHOCYTES % (AUTO) 14 % (12-44); MEAN CORPUSCULAR HEMOGLOBIN 34 PG (25-34); MEAN CORPUSCULAR HGB CONC 34 G/DL (32-36); MEAN CORPUSCULAR VOLUME 102 FL (80-99); MEAN PLATELET VOLUME 9.2 FL (7.4-10.4); MONOCYTES # (AUTO) 0.9 X 10^3 (0.0-1.0); MONOCYTES % (AUTO) 11 % (0-12); NEUTROPHILS # (AUTO) 6.1 X 10^3 (1.8-7.8); NEUTROPHILS % (AUTO) 74 % (42-75); PLATELET COUNT 368 10^3/uL (130-400); RED BLOOD COUNT 3.76 10^6/uL (4.35-5.85); RED CELL DISTRIBUTION WIDTH 14.9 % (10.0-14.5); WHITE BLOOD COUNT 8.4 10^3/uL (4.3-11.0)
[2016-11-20 09:40] LABS: ALANINE AMINOTRANSFERASE 40 U/L (0-55); ALBUMIN 3.9 G/DL (3.2-4.5); ANION GAP 12 MMOL/L (5-14); ASPARTATE AMINO TRANSFERASE 32 U/L (5-34); BILIRUBIN,TOTAL 0.4 MG/DL (0.1-1.0); BLOOD UREA NITROGEN 11 MG/DL (7-18); BUN/CREATININE RATIO 15; CARBON DIOXIDE 24 MMOL/L (21-32); CHLORIDE 103 MMOL/L (98-107); CREATININE SERUM 0.74 MG/DL (0.60-1.30); GFR ESTIMATED > 60; GLUCOSE 95 MG/DL (70-105); SODIUM 139 MMOL/L (135-145); TOTAL PROTEIN 6.7 G/DL (6.4-8.2)
[2016-11-26 08:48] LABS: BASOPHILS % (AUTO) 1 % (0-10); EOSINOPHILS # (AUTO) 0.1 10^3/uL (0.0-0.3); EOSINOPHILS % (AUTO) 1 % (0-10); LYMPHOCYTES # (AUTO) 0.8 X 10^3 (1.0-4.0); LYMPHOCYTES % (AUTO) 22 % (12-44); MEAN CORPUSCULAR HEMOGLOBIN 34 PG (25-34); MEAN CORPUSCULAR HGB CONC 34 G/DL (32-36); MEAN CORPUSCULAR VOLUME 100 FL (80-99); MONOCYTES # (AUTO) 0.5 X 10^3 (0.0-1.0); MONOCYTES % (AUTO) 15 % (0-12); NEUTROPHILS # (AUTO) 2.2 X 10^3 (1.8-7.8); NEUTROPHILS % (AUTO) 61 % (42-75); PLATELET COUNT 183 10^3/uL (130-400); RED BLOOD COUNT 3.54 10^6/uL (4.35-5.85); RED CELL DISTRIBUTION WIDTH 14.2 % (10.0-14.5); WHITE BLOOD COUNT 3.6 10^3/uL (4.3-11.0)
[2016-11-26 09:12] LABS: ANION GAP 9 MMOL/L (5-14); BLOOD UREA NITROGEN 12 MG/DL (7-18); BUN/CREATININE RATIO 17; CARBON DIOXIDE 23 MMOL/L (21-32); CHLORIDE 105 MMOL/L (98-107); CREATININE SERUM 0.72 MG/DL (0.60-1.30); GFR ESTIMATED > 60; GLUCOSE 98 MG/DL (70-105); POTASSIUM 3.9 MMOL/L (3.6-5.0); SODIUM 137 MMOL/L (135-145)
[2016-12-03 08:44] LABS: BASOPHILS % (AUTO) 0 % (0-10); EOSINOPHILS % (AUTO) 1 % (0-10); LYMPHOCYTES # (AUTO) 0.9 X 10^3 (1.0-4.0); LYMPHOCYTES % (AUTO) 21 % (12-44); MEAN CORPUSCULAR HEMOGLOBIN 34 PG (25-34); MEAN CORPUSCULAR HGB CONC 34 G/DL (32-36); MEAN CORPUSCULAR VOLUME 100 FL (80-99); MEAN PLATELET VOLUME 9.5 FL (7.4-10.4); MONOCYTES # (AUTO) 0.8 X 10^3 (0.0-1.0); MONOCYTES % (AUTO) 19 % (0-12); NEUTROPHILS # (AUTO) 2.7 X 10^3 (1.8-7.8); NEUTROPHILS % (AUTO) 60 % (42-75); PLATELET COUNT 109 10^3/uL (130-400); RED BLOOD COUNT 3.51 10^6/uL (4.35-5.85); RED CELL DISTRIBUTION WIDTH 14.8 % (10.0-14.5); WHITE BLOOD COUNT 4.4 10^3/uL (4.3-11.0)
[2016-12-03 09:05] LABS: ANION GAP 11 MMOL/L (5-14); BLOOD UREA NITROGEN 14 MG/DL (7-18); BUN/CREATININE RATIO 19; CALCIUM 8.6 MG/DL (8.5-10.1); CARBON DIOXIDE 22 MMOL/L (21-32); CHLORIDE 105 MMOL/L (98-107); CREATININE SERUM 0.73 MG/DL (0.60-1.30); GFR ESTIMATED > 60; GLUCOSE 87 MG/DL (70-105); SODIUM 138 MMOL/L (135-145)
[2016-12-17 09:08] LABS: BASOPHILS % (AUTO) 0 % (0-10); EOSINOPHILS # (AUTO) 0.1 10^3/uL (0.0-0.3); EOSINOPHILS % (AUTO) 2 % (0-10); LYMPHOCYTES % (AUTO) 12 % (12-44); MEAN CORPUSCULAR HEMOGLOBIN 33 PG (25-34); MEAN CORPUSCULAR HGB CONC 33 G/DL (32-36); MEAN CORPUSCULAR VOLUME 100 FL (80-99); MONOCYTES # (AUTO) 1.1 X 10^3 (0.0-1.0); MONOCYTES % (AUTO) 14 % (0-12); NEUTROPHILS # (AUTO) 5.8 X 10^3 (1.8-7.8); NEUTROPHILS % (AUTO) 72 % (42-75); PLATELET COUNT 405 10^3/uL (130-400); RED BLOOD COUNT 3.64 10^6/uL (4.35-5.85); RED CELL DISTRIBUTION WIDTH 15.2 % (10.0-14.5)
[2016-12-17 09:37] LABS: ALANINE AMINOTRANSFERASE 25 U/L (0-55); ALBUMIN 3.4 G/DL (3.2-4.5); ANION GAP 9 MMOL/L (5-14); ASPARTATE AMINO TRANSFERASE 29 U/L (5-34); BILIRUBIN,TOTAL 0.3 MG/DL (0.1-1.0); BLOOD UREA NITROGEN 12 MG/DL (7-18); BUN/CREATININE RATIO 16; CALCIUM 8.5 MG/DL (8.5-10.1); CARBON DIOXIDE 25 MMOL/L (21-32); CHLORIDE 105 MMOL/L (98-107); CREATININE SERUM 0.74 MG/DL (0.60-1.30); GFR ESTIMATED > 60; GLUCOSE 111 MG/DL (70-105); POTASSIUM 3.9 MMOL/L (3.6-5.0); SODIUM 139 MMOL/L (135-145); TOTAL PROTEIN 6.2 G/DL (6.4-8.2)
[~2016-12-23] VITALS: Ht 171.4 cm; Wt 105.2 kg
[~2016-12-23 10:51] MED LIST changes: -BARIUM SUSPENSION 2.1% (VANILLA SILQ) 450 ML PO ONE; -CATHETER FLUSH 10 ML SYR IV PRN; +GEMCITABINE HCL (GENERIC) 2,000 MG in NS (IVPB) CANCER CENTER 100 ML IV SCH; -IOHEXOL 350 MG/ML 100 ML (OMNIPAQUE 350) VIAL IV ONE; -NS 100 ML (IVPB) BAG IV ONE; +NS IV 500 ML (CANCER CENTER) IV SCH; +ONDANSETRON MDV (CANCER CENTER 8 MG, DEXAMETHASONE INJ (CANCER CTR) 4 MG in NS (IVPB) C... IV SCH; -OXC10TCR PO; -OXYC-188 PO
[2016-12-23 11:13] LABS: BASOPHILS % (AUTO) 1 % (0-10); EOSINOPHILS # (AUTO) 0.1 10^3/uL (0.0-0.3); EOSINOPHILS % (AUTO) 1 % (0-10); LYMPHOCYTES # (AUTO) 1.3 X 10^3 (1.0-4.0); LYMPHOCYTES % (AUTO) 24 % (12-44); MEAN CORPUSCULAR HEMOGLOBIN 33 PG (25-34); MEAN CORPUSCULAR HGB CONC 33 G/DL (32-36); MEAN CORPUSCULAR VOLUME 99 FL (80-99); MEAN PLATELET VOLUME 9.2 FL (7.4-10.4); MONOCYTES # (AUTO) 0.9 X 10^3 (0.0-1.0); MONOCYTES % (AUTO) 17 % (0-12); NEUTROPHILS % (AUTO) 57 % (42-75); PLATELET COUNT 219 10^3/uL (130-400); RED BLOOD COUNT 3.56 10^6/uL (4.35-5.85); RED CELL DISTRIBUTION WIDTH 15.2 % (10.0-14.5); WHITE BLOOD COUNT 5.2 10^3/uL (4.3-11.0)
[2016-12-23 12:12] LABS: ANION GAP 11 MMOL/L (5-14); BLOOD UREA NITROGEN 16 MG/DL (7-18); BUN/CREATININE RATIO 21; CALCIUM 8.8 MG/DL (8.5-10.1); CARBON DIOXIDE 24 MMOL/L (21-32); CHLORIDE 103 MMOL/L (98-107); CREATININE SERUM 0.75 MG/DL (0.60-1.30); GFR ESTIMATED > 60; GLUCOSE 86 MG/DL (70-105); POTASSIUM 3.8 MMOL/L (3.6-5.0); SODIUM 138 MMOL/L (135-145)
[2017-03-07] MEDS ORDERED: OXC10TCR PO (08:17)
[2017-03-07] MEDS ORDERED: OXYC-188 PO (08:17)
== END 2017-02-18 | disposition home or self-care (01) ==
LOC: ONC 10:51
PROVIDERS: ATTEND Internal Medicine Hematology & Oncology
DX: Z51.11 Encounter for antineoplastic chemotherapy (principal); C50.212 Malignant neoplasm of upper-inner quadrant of left female breast; I10 Essential (primary) hypertension; Z17.1 Estrogen receptor negative status [ER-]; Z79.899 Other long term (current) drug therapy; Z76.89 Persons encountering health services in other specified circumstances
CPT/HCPCS: 36415; 36591; 80048; 80053; 85025; 86300; 96375; 96413; 99213

== ENCOUNTER → 2016-12-23 | Outpatient (CLI) | payer BC ==
[~2016-12-23] MED LIST changes: +BARIUM SUSPENSION 2.1% (VANILLA SILQ) 450 ML PO ONE; +CATHETER FLUSH 10 ML SYR IV PRN; -GEMCITABINE HCL (GENERIC) 2,000 MG in NS (IVPB) CANCER CENTER 100 ML IV SCH; +IOHEXOL 350 MG/ML 100 ML (OMNIPAQUE 350) VIAL IV ONE; +NS 100 ML (IVPB) BAG IV ONE; -NS IV 500 ML (CANCER CENTER) 500 ML ONE; -NS IV 500 ML (CANCER CENTER) IV SCH; -ONDANSETRON MDV (CANCER CENTER 8 MG, DEXAMETHASONE INJ (CANCER CTR) 4 MG in NS (IVPB) C... IV SCH; +OXC10TCR PO; +OXYC-188 PO
--- OUTSIDE RECORDS SUMMARY | 2016-12-23 11:32 | XMS REPORT | Continuity of Care Document ---
Author Author [facility] Organization [facility] Address Unknown Phone Unavailable Care Team Providers Care Shipping Packer Name Role Phone Keara Espinoza PCP [phone] Source Comments Some departments are not documenting in the electronic medical record. If you do not see the information that you expected, contact Release of Information in the Health Information Management department at [phone] for further assistance in locating additional records.[facility] Active Allergies and Adverse Reactions [...] 1. Left, grade 3, triple negative IDC (ER/[place] 0%, HER2 0+, Ki-67 63%) at 10:00 [...] Left breast sono-guided biopsy at 6:00 10/11/15 ([place]) revealed fibrocystic breast tissue. Left breast sono-guided biopsy at 10:00 10/11/15 ([place]) revealed grade 3, triple negative invasive ductal carcinoma. Left axilla sono-guided biopsy 10/11/15 ([place]) revealed metastatic carcinoma. PET scan 10/23/15 ([place]) revealed no evidence of metastasis. She has a history of a left breast excision in 2001 which was a fibroadenoma. Ms. Gamez met with a medical oncologist closer to home who is planning neoadjuvant AC followed by taxotere/carbo. Genetic counseling/testing has been recommended and is scheduled in [place]. Ms. Gamez underwent left RSL lumpectomy/SLNB on 03/07/16. Final pathology revealed 1.8 cm tumor bed with 1.5 cm residual grade 3 triple negative IDC, largest foci was 6 mm; 5-60% residual viable cellularity; all margins over 2 mm; LVI absent; 1/22 positive ALNs with 2 mm metastasis, treatment effect present, no extranodal extension. Ms. Gamez finished radiation in [place], [place] on 05/31/16. At the end of [...] infraclavicular lymph node. Supraclavicular sono-guided biopsy 07/01/16 ([place], [place]) revealed metastatic carcinoma. Her tumor was sent for genetic testing and Gemzar was recommended. She was going to start the triple negative vaccine trial, but was unable to due to having failed adjuvant chemotherapy. She will start this if Gemzar does not work. BREAST IMAGING: Mammogram: -- Left diagnostic mammogram 10/06/15 ([place]) revealed a 2.4 cm rounded mass in [...] nodes. Ultrasound: -- Left breast ultrasound 10/06/15 ([place]) revealed a 1.5 cm hypoechoic mass at [...] left axilla. Other: -- CT CAP 06/24/16 ([place], [place]) revealed a 1.3 x 1.1 cm [...] Gemzar 07/2016 REFERRED BY: Dr. Joel Grimaldo Social History Tobacco Use Types Packs/Day Years [...] / Breast Ck Khan DO Center [address] [place] [address] [phone] (Fax) Health Maintenance Due Date Last Done Comments Physical (Comprehensive) 1974 Exam Pertussis Vaccine 1978 Tetanus Vaccine 1984 Cervical Cancer Screening 1988 Influenza Vaccine 07/18/2016 Breast Cancer Screening 11/08/2016 11/08/2015 Results from Last 3 Months Not on file
[2016-12-23] MEDS: CATHETER FLUSH 10 ML SYR IV PRN ×2 (11:50→11:58)
--- NOTE | 2016-12-23 15:51 | Diagnostic Imaging Report ---
EXAMINATION: CT scan of the neck, chest, and abdomen performed with intravenous contrast. CONTRAST: 100 mL of Omnipaque 350 is administered intravenously. COMPARISON: 10/14/2016. FINDINGS: CT neck: There is minimal apparent enlargement in left level V lymph node measuring 1.6 x 1.4 cm compared to 1.4 cm on the prior exam. A more laterally located lymph node in level V chain on the left also is 0.9 cm in size, enlarged from the previous study when it measured 0.6 cm, measurements obtained in short axis. There is also interval enlargement of a level IV lymph node measuring 8 mm in short axis compared to 3 mm on the previous study. More superiorly in the lymph node chain, there are no enlarged nodes. No significant lymphadenopathy in the right side of the neck. The thyroid gland is normal. There is symmetric appearance of the submandibular and parotid glands. The visualized portions of the paranasal sinuses appear clear. The osseous structures appear grossly unremarkable. CT chest: There are multiple pulmonary nodules seen, the largest is 1.1 cm in the right upper lobe, new from the prior exam, suggestive of metastatic disease. The nodules are mostly in the right lung and the right lung base. The left lung demonstrates no significant mass or consolidation. There is a trace pleural effusion, however. The heart size is normal. There is no significant pleural effusion. No mediastinal mass. In the right breast, there is increased skin thickening. There is a right breast mass measuring 2.8 cm, similar to the prior exam. There is a 1.8 cm axillary lymph node, similar in long axis to the previous exam. It is, however, larger in short axis measuring 1.6 cm currently compared to 1.1 cm on the previous study. The osseous structures demonstrate subtle sclerotic foci seen in T2 and T3 vertebral bodies, more prominent compared to the prior exam raising question of metastasis. There are stable sclerotic lesions seen, one in T9 and one in T11 vertebral bodies without significant change. CT abdomen: Interval enlargement in retrocaval lymph node measuring 1.3 cm compared to previously nonenlarged subcentimeter lymph nodes is seen. Other para-aortic borderline lymph nodes are also noted, slightly enlarged from the previous study located mostly around the renal hilum level. The pancreas, the spleen, and the liver appear unremarkable. The adrenal glands appear unremarkable. Gallstones are seen. The kidneys have symmetric contrast enhancement and excretion. There is no hydronephrosis. There are numerous tiny sclerotic foci in the lumbar spine likely related to early small metastasis. IMPRESSION: CT neck: Slightly enlarged left supraclavicular and level V lymph nodes compared to the previous exam. CT chest: 1. Interval development of right lung metastasis. There is a tiny left pleural effusion with no obvious pleural nodules. 2. Interval enlargement in left axillary lymph nodes. 3. Stable sclerotic lesions in the lower thoracic spine and subtle increased sclerotic foci in the upper thoracic spine suggestive of metastases. CT abdomen: 1. Interval enlargement in para-aortic and retrocaval lymph nodes in the upper abdomen compatible with metastases. 2. Subtle sclerotic lesions in the lumbar spine, likely metastases. 3. Gallstones. Dictated by: Dictated on workstation # [id number]
--- NOTE | 2016-12-23 15:59 | Diagnostic Imaging Report ---
Whole body bone scan. TECHNIQUE: After the intravenous administration of 27 mCi of Technetium 99m MDP, whole body delayed phase bone scan images were obtained with lateral views of the head and neck and the chest regions. INDICATION: Breast cancer. COMPARISON: 10/14/2016. FINDINGS: There is development of moderate focus of increased activity seen in the right side of T11 vertebral body which matches location of a sclerotic lesion seen on CT scan. There is also mild increased uptake in the upper thoracic spine and mild new foci of increased uptake in scattered multiple ribs posteriorly not seen on the previous exam. Increased radiotracer activity is also seen in the sacrum. IMPRESSION: Multiple foci of increased radiotracer activity seen in the spine, ribs and the pelvis concerning for osseous metastasis. Dictated by: Dictated on workstation # [id number]
== END ==
LOC: CARD 11:28
PROVIDERS: ATTEND Nurse Practitioner Adult Health
DX: C50.212 Malignant neoplasm of upper-inner quadrant of left female breast (principal); C77.9 Secondary and unspecified malignant neoplasm of lymph node, unspecified
CPT/HCPCS: 70491; 71260; 74160; 78306

== ENCOUNTER → 2016-12-24 | Outpatient (CLI) | payer BC ==
[~2016-12-24] MED LIST changes: -GEMCITABINE HCL (GENERIC) 2,000 MG in NS (IVPB) CANCER CENTER 100 ML IV SCH; -NS IV 500 ML (CANCER CENTER) IV SCH; -ONDANSETRON MDV (CANCER CENTER 8 MG, DEXAMETHASONE INJ (CANCER CTR) 4 MG in NS (IVPB) C... IV SCH; +OXC10TCR PO; +OXYC-188 PO
--- OUTSIDE RECORDS SUMMARY | 2016-12-24 11:23 | XMS REPORT | Continuity of Care Document ---
Author Author [facility] Organization [facility] Address Unknown Phone Unavailable Care Team Providers Care Inside Wirer Name Role Phone Keara Espinoza PCP [phone] Source Comments Some departments are not documenting in the electronic medical record. If you do not see the information that you expected, contact Release of Information in the Health Information Management department at [phone] for further assistance in locating additional records.[facility] Active Allergies and Adverse Reactions Allergen Noted [...] 1. Left, grade 3, triple negative IDC (ER/NC 0%, HER2 0+, Ki-67 63%) at 10:00 [...] Left breast sono-guided biopsy at 6:00 10/11/15 ([place]) revealed fibrocystic breast tissue. Left breast sono-guided biopsy at 10:00 10/11/15 ([place]) revealed grade 3, triple negative invasive ductal carcinoma. Left axilla sono-guided biopsy 10/11/15 ([place]) revealed metastatic carcinoma. PET scan 10/23/15 ([place]) revealed no evidence of metastasis. She has a history of a left breast excision in 2001 which was a fibroadenoma. Ms. Gamez met with a medical oncologist closer to home who is planning neoadjuvant AC followed by taxotere/carbo. Genetic counseling/testing has been recommended and is scheduled in [place]. Ms. Gamez underwent left RSL lumpectomy/SLNB on 03/07/16. Final pathology revealed 1.8 cm tumor bed with 1.5 cm residual grade 3 triple negative IDC, largest foci was 6 mm; 5-60% residual viable cellularity; all margins over 2 mm; LVI absent; 1/22 positive ALNs with 2 mm metastasis, treatment effect present, no extranodal extension. Ms. Gamez finished radiation in [place], [place] on 05/31/16. At the end of [...] infraclavicular lymph node. Supraclavicular sono-guided biopsy 07/01/16 ([place], [place]) revealed metastatic carcinoma. Her tumor was sent for genetic testing and Gemzar was recommended. She was going to start the triple negative vaccine trial, but was unable to due to having failed adjuvant chemotherapy. She will start this if Gemzar does not work. BREAST IMAGING: Mammogram: -- Left diagnostic mammogram 10/06/15 ([place]) revealed a 2.4 cm rounded mass in [...] nodes. Ultrasound: -- Left breast ultrasound 10/06/15 ([place]) revealed a 1.5 cm hypoechoic mass at [...] left axilla. Other: -- CT CAP 06/24/16 ([place], [place]) revealed a 1.3 x 1.1 cm [...] DO Center [address] [place] [address] [phone] (Fax) Health Maintenance Due Date Last Done Comments Physical (Comprehensive) 1974 Exam Pertussis Vaccine 1978 Tetanus Vaccine 1984 Cervical Cancer Screening 1988 Influenza Vaccine 07/18/2016 Breast Cancer Screening 11/08/2016 11/08/2015 Results from Last 3 Months Not on file
== END ==
LOC: FS 11:20
PROVIDERS: ATTEND Internal Medicine Hematology & Oncology
DX: C50.212 Malignant neoplasm of upper-inner quadrant of left female breast (principal); C77.3 Secondary and unspecified malignant neoplasm of axilla and upper limb lymph nodes; I10 Essential (primary) hypertension; Z79.899 Other long term (current) drug therapy; Z17.1 Estrogen receptor negative status [ER-]; Z76.89 Persons encountering health services in other specified circumstances
CPT/HCPCS: 99213

== ENCOUNTER → 2017-03-07 | Outpatient (CLI) | payer BC ==
[~2017-03-07] VITALS: Ht 172.7 cm; Wt 102.1 kg
[~2017-03-07] MED LIST changes: +LIDOCAINE 1% INJ 20 ML (XYLOCAINE) VIAL INJ ONE; +LIDOCAINE 1% INJ 20 ML (XYLOCAINE) VIAL ONE
[2017-03-07 08:19] VITALS: BP 130/87
--- NOTE | 2017-03-07 08:50 | Diagnostic Imaging Report ---
Portable AP view of the chest. INDICATION: Thoracentesis. FINDINGS: There is suggestion of a moderate pleural effusion on the right side with a layering component along the lateral chest wall. Right lower lobe atelectasis or infiltrate is seen. There is a minimal left effusion and atelectasis. The heart size is normal. No pneumothorax. Right IJ port with the tip at the SVC level seen. IMPRESSION: Bilateral effusions with bibasilar infiltrates or atelectasis more on the right side. Dictated by: Dictated on workstation # [id number]
--- NOTE | 2017-03-07 10:32 | Diagnostic Imaging Report ---
EXAMINATION: Ultrasound guided drain placement -chest. INDICATION: Right pleural effusion. CONSENT: Informed consent was obtained from the patient. The risks, benefits, potential complications and alternatives were reviewed and all questions answered to the patient's satisfaction. FINDINGS: Right pleural effusion predominantly subpulmonic needing live ultrasound guidance. PROCEDURE: After sterile maximum barrier technique preparation and draping, 1% lidocaine was utilized for local anesthesia. An appropriate approach is selected based on preliminary scanning with ultrasound. A trocar technique for catheter insertion was performed utilizing ultrasound guidance into the right pleural cavity.. Image of proper location of the needle is documented. Ultrasound images confirm appropriate positioning of the 6.5 Vietnamese drain and distal loop formed in the collection. A 60 ml of yellow serous fluid is aspirated and subsequently the drainage catheter is connected to suction draining drainage bag. The patient tolerated the procedure well with no immediate complications. IMPRESSION: Successful ultrasound-guided drain placement in right pleural effusion. Dictated by: Dictated on workstation # [id number]
[2017-03-07 11:00] VITALS: BP_SYST 130; BP_SYST 138; BP_DIAS 85; BP_DIAS 87
== END ==
LOC: SDC 08:03
PROVIDERS: ATTEND Surgery
DX: J90 Pleural effusion, not elsewhere classified (principal)
CPT/HCPCS: 71010; 88112; 88305

== ENCOUNTER → 2017-03-31 | Outpatient (CLI) | payer BC ==
[~2017-03-31] MED LIST changes: -LIDOCAINE 1% INJ 20 ML (XYLOCAINE) VIAL INJ ONE; -LIDOCAINE 1% INJ 20 ML (XYLOCAINE) VIAL ONE
--- NOTE | 2017-03-31 13:42 | Diagnostic Imaging Report ---
INDICATION: Shortness of breath and pleural effusion. PA and lateral chest. Right IJ central tip projects over the SVC. There are bilateral pleural effusions larger on the right than on the left. There are some small nodular opacities in both lungs that could be inflammatory versus neoplastic. IMPRESSION: Ill-defined nodular opacities in the lungs as described. Bilateral pleural effusions. No change compared to 03/07/2017. Dictated by: Dictated on workstation # [id number]
== END ==
LOC: RAD 09:46
PROVIDERS: ATTEND Nurse Practitioner Adult Health
DX: J90 Pleural effusion, not elsewhere classified (principal); R06.02 Shortness of breath
CPT/HCPCS: 71020

== ENCOUNTER → 2017-04-10 | Outpatient (CLI) | payer BC ==
--- NOTE | 2017-04-10 11:54 | Diagnostic Imaging Report ---
EXAMINATION: Left upper extremity venous duplex ultrasound. INDICATION: Pain and swelling in the left upper extremity. FINDINGS: The left internal jugular vein, subclavian, axillary, brachial, radial, ulnar, and basilic veins are all patent. The cephalic vein is also patent. Compressibility, color flow, and venous waveforms are demonstrated. In the axilla, there is a 2.7 x 2.3 x 2.5 cm hypoechoic lesion with no internal vascularity noted. IMPRESSION: 1. No evidence of DVT in the left upper extremity. 2. Hypoechoic mass in the left axilla with no internal color Doppler demonstrated. This is indeterminate and, based on the prior history of breast cancer, a hypovascular lymph node mass is not excluded. Consider correlation with a PET/CT or CT scan with and without contrast. Report faxed to JASIEL Guerra, at 11:55 a.m. 04/10/2017/patricia Dictated by: Dictated on workstation # [id number]
== END ==
LOC: RAD 09:42
PROVIDERS: ATTEND Nurse Practitioner Adult Health
DX: C50.212 Malignant neoplasm of upper-inner quadrant of left female breast (principal); M79.89 Other specified soft tissue disorders

== ENCOUNTER 2017-04-21 11:29 | Outpatient (RCR) | payer BC ==
[2017-03-07 11:45] LABS: BASOPHILS # (AUTO) 0.1 10^3/uL (0.0-0.1); BASOPHILS % (AUTO) 1 % (0-10); EOSINOPHILS % (AUTO) 0 % (0-10); LYMPHOCYTES # (AUTO) 1.1 X 10^3 (1.0-4.0); LYMPHOCYTES % (AUTO) 14 % (12-44); MEAN CORPUSCULAR HEMOGLOBIN 31 PG (25-34); MEAN CORPUSCULAR HGB CONC 32 G/DL (32-36); MEAN CORPUSCULAR VOLUME 95 FL (80-99); MEAN PLATELET VOLUME 10.3 FL (7.4-10.4); MONOCYTES # (AUTO) 1.2 X 10^3 (0.0-1.0); MONOCYTES % (AUTO) 15 % (0-12); NEUTROPHILS # (AUTO) 5.7 X 10^3 (1.8-7.8); NEUTROPHILS % (AUTO) 71 % (42-75); PLATELET COUNT 124 10^3/uL (130-400); RED CELL DISTRIBUTION WIDTH 18.6 % (10.0-14.5)
[2017-03-07 12:06] LABS: ALANINE AMINOTRANSFERASE 80 U/L (0-55); ALBUMIN 3.1 G/DL (3.2-4.5); ANION GAP 12 MMOL/L (5-14); ASPARTATE AMINO TRANSFERASE 99 U/L (5-34); BILIRUBIN,TOTAL 1.2 MG/DL (0.1-1.0); BLOOD UREA NITROGEN 7 MG/DL (7-18); BUN/CREATININE RATIO 11; CALCIUM 8.2 MG/DL (8.5-10.1); CARBON DIOXIDE 22 MMOL/L (21-32); CHLORIDE 102 MMOL/L (98-107); CREATININE SERUM 0.65 MG/DL (0.60-1.30); GFR ESTIMATED > 60; GLUCOSE 99 MG/DL (70-105); POTASSIUM 3.6 MMOL/L (3.6-5.0); SODIUM 136 MMOL/L (135-145); TOTAL PROTEIN 5.8 G/DL (6.4-8.2)
[2017-03-10 15:13] LABS: BASOPHILS % (AUTO) 0 % (0-10); EOSINOPHILS % (AUTO) 0 % (0-10); LYMPHOCYTES # (AUTO) 1.5 X 10^3 (1.0-4.0); LYMPHOCYTES % (AUTO) 14 % (12-44); MEAN CORPUSCULAR HEMOGLOBIN 32 PG (25-34); MEAN CORPUSCULAR HGB CONC 33 G/DL (32-36); MEAN CORPUSCULAR VOLUME 97 FL (80-99); MEAN PLATELET VOLUME 9.8 FL (7.4-10.4); MONOCYTES # (AUTO) 1.2 X 10^3 (0.0-1.0); MONOCYTES % (AUTO) 11 % (0-12); NEUTROPHILS # (AUTO) 7.9 X 10^3 (1.8-7.8); NEUTROPHILS % (AUTO) 74 % (42-75); PLATELET COUNT 113 10^3/uL (130-400); RED BLOOD COUNT 3.32 10^6/uL (4.35-5.85); WHITE BLOOD COUNT 10.7 10^3/uL (4.3-11.0)
[2017-03-10 15:37] LABS: ALANINE AMINOTRANSFERASE 68 U/L (0-55); ALBUMIN 2.8 G/DL (3.2-4.5); ANION GAP 10 MMOL/L (5-14); ASPARTATE AMINO TRANSFERASE 91 U/L (5-34); BILIRUBIN,TOTAL 0.8 MG/DL (0.1-1.0); BLOOD UREA NITROGEN 9 MG/DL (7-18); BUN/CREATININE RATIO 14; CALCIUM 7.9 MG/DL (8.5-10.1); CARBON DIOXIDE 23 MMOL/L (21-32); CHLORIDE 104 MMOL/L (98-107); CREATININE SERUM 0.64 MG/DL (0.60-1.30); GFR ESTIMATED > 60; GLUCOSE 98 MG/DL (70-105); MAGNESIUM 1.6 MG/DL (1.8-2.4); POTASSIUM 3.6 MMOL/L (3.6-5.0); SODIUM 137 MMOL/L (135-145); TOTAL PROTEIN 5.4 G/DL (6.4-8.2)
[2017-03-17 09:13] LABS: BASOPHILS # (AUTO) 0.1 10^3/uL (0.0-0.1); BASOPHILS % (AUTO) 1 % (0-10); EOSINOPHILS % (AUTO) 0 % (0-10); LYMPHOCYTES # (AUTO) 0.5 X 10^3 (1.0-4.0); LYMPHOCYTES % (AUTO) 9 % (12-44); MEAN CORPUSCULAR HEMOGLOBIN 32 PG (25-34); MEAN CORPUSCULAR HGB CONC 33 G/DL (32-36); MEAN CORPUSCULAR VOLUME 98 FL (80-99); MEAN PLATELET VOLUME 10.4 FL (7.4-10.4); MONOCYTES # (AUTO) 0.5 X 10^3 (0.0-1.0); MONOCYTES % (AUTO) 9 % (0-12); NEUTROPHILS # (AUTO) 4.8 X 10^3 (1.8-7.8); NEUTROPHILS % (AUTO) 81 % (42-75); PLATELET COUNT 143 10^3/uL (130-400); RED BLOOD COUNT 3.24 10^6/uL (4.35-5.85); RED CELL DISTRIBUTION WIDTH 19.7 % (10.0-14.5); WHITE BLOOD COUNT 5.9 10^3/uL (4.3-11.0)
[2017-03-17 09:38] LABS: ANION GAP 11 MMOL/L (5-14); BLOOD UREA NITROGEN 9 MG/DL (7-18); BUN/CREATININE RATIO 15; CALCIUM 7.9 MG/DL (8.5-10.1); CARBON DIOXIDE 24 MMOL/L (21-32); CHLORIDE 102 MMOL/L (98-107); CREATININE SERUM 0.61 MG/DL (0.60-1.30); GFR ESTIMATED > 60; GLUCOSE 98 MG/DL (70-105); POTASSIUM 3.1 MMOL/L (3.6-5.0); SODIUM 137 MMOL/L (135-145)
[2017-03-24 09:13] LABS: BASOPHILS % (AUTO) 1 % (0-10); EOSINOPHILS % (AUTO) 0 % (0-10); LYMPHOCYTES # (AUTO) 0.4 X 10^3 (1.0-4.0); LYMPHOCYTES % (AUTO) 27 % (12-44); MEAN CORPUSCULAR HEMOGLOBIN 32 PG (25-34); MEAN CORPUSCULAR HGB CONC 32 G/DL (32-36); MEAN CORPUSCULAR VOLUME 98 FL (80-99); MEAN PLATELET VOLUME 10.3 FL (7.4-10.4); MONOCYTES # (AUTO) 0.4 X 10^3 (0.0-1.0); MONOCYTES % (AUTO) 30 % (0-12); NEUTROPHILS # (AUTO) 0.6 X 10^3 (1.8-7.8); NEUTROPHILS % (AUTO) 43 % (42-75); PLATELET COUNT 156 10^3/uL (130-400); RED BLOOD COUNT 3.05 10^6/uL (4.35-5.85); RED CELL DISTRIBUTION WIDTH 20.2 % (10.0-14.5); WHITE BLOOD COUNT 1.5 10^3/uL (4.3-11.0)
[2017-03-24 09:33] LABS: ANION GAP 8 MMOL/L (5-14); BLOOD UREA NITROGEN 7 MG/DL (7-18); BUN/CREATININE RATIO 12; CALCIUM 7.8 MG/DL (8.5-10.1); CARBON DIOXIDE 27 MMOL/L (21-32); CHLORIDE 104 MMOL/L (98-107); CREATININE SERUM 0.59 MG/DL (0.60-1.30); GFR ESTIMATED > 60; GLUCOSE 149 MG/DL (70-105); MAGNESIUM 1.6 MG/DL (1.8-2.4); POTASSIUM 3.2 MMOL/L (3.6-5.0); SODIUM 139 MMOL/L (135-145)
[2017-03-31 09:14] LABS: BASOPHILS % (AUTO) 1 % (0-10); EOSINOPHILS % (AUTO) 0 % (0-10); LYMPHOCYTES # (AUTO) 0.5 X 10^3 (1.0-4.0); LYMPHOCYTES % (AUTO) 11 % (12-44); MEAN CORPUSCULAR HEMOGLOBIN 32 PG (25-34); MEAN CORPUSCULAR HGB CONC 32 G/DL (32-36); MEAN CORPUSCULAR VOLUME 101 FL (80-99); MEAN PLATELET VOLUME 10.1 FL (7.4-10.4); MONOCYTES # (AUTO) 0.8 X 10^3 (0.0-1.0); MONOCYTES % (AUTO) 20 % (0-12); NEUTROPHILS # (AUTO) 2.7 X 10^3 (1.8-7.8); NEUTROPHILS % (AUTO) 67 % (42-75); PLATELET COUNT 102 10^3/uL (130-400); RED BLOOD COUNT 3.17 10^6/uL (4.35-5.85); RED CELL DISTRIBUTION WIDTH 22.3 % (10.0-14.5)
[2017-03-31 09:40] LABS: ALANINE AMINOTRANSFERASE 34 U/L (0-55); ALBUMIN 2.5 G/DL (3.2-4.5); ANION GAP 5 MMOL/L (5-14); ASPARTATE AMINO TRANSFERASE 50 U/L (5-34); BLOOD UREA NITROGEN 9 MG/DL (7-18); BUN/CREATININE RATIO 17; CALCIUM 7.9 MG/DL (8.5-10.1); CARBON DIOXIDE 29 MMOL/L (21-32); CHLORIDE 106 MMOL/L (98-107); CREATININE SERUM 0.54 MG/DL (0.60-1.30); GFR ESTIMATED > 60; GLUCOSE 118 MG/DL (70-105); MAGNESIUM 1.5 MG/DL (1.8-2.4); POTASSIUM 3.4 MMOL/L (3.6-5.0); SODIUM 140 MMOL/L (135-145); TOTAL PROTEIN 4.8 G/DL (6.4-8.2)
[2017-03-31 10:02] LABS: KETONES,URINE 1+ (NEGATIVE); LEUKOCYTE ESTERASE ,URINE 1+ (NEGATIVE); NITRITE,URINE NEGATIVE (NEGATIVE); PH,URINE 7 (5-9); PROTEIN,URINE 1+ (NEGATIVE); UROBILINOGEN,URINE 1 MG/DL (NORMAL)
[2017-03-31 10:33] LABS: WBC,URINE 0-2 /HPF
[2017-03-31 10:44] LABS: BILIRUBIN,URINE 1+ (NEGATIVE)
[2017-04-07 09:07] LABS: BASOPHILS # (AUTO) 0.1 10^3/uL (0.0-0.1); BASOPHILS % (AUTO) 2 % (0-10); EOSINOPHILS % (AUTO) 0 % (0-10); LYMPHOCYTES # (AUTO) 0.4 X 10^3 (1.0-4.0); LYMPHOCYTES % (AUTO) 12 % (12-44); MEAN CORPUSCULAR HEMOGLOBIN 32 PG (25-34); MEAN CORPUSCULAR HGB CONC 31 G/DL (32-36); MEAN CORPUSCULAR VOLUME 102 FL (80-99); MEAN PLATELET VOLUME 10.1 FL (7.4-10.4); MONOCYTES # (AUTO) 0.4 X 10^3 (0.0-1.0); MONOCYTES % (AUTO) 14 % (0-12); NEUTROPHILS # (AUTO) 2.2 X 10^3 (1.8-7.8); NEUTROPHILS % (AUTO) 71 % (42-75); PLATELET COUNT 86 10^3/uL (130-400); RED BLOOD COUNT 2.88 10^6/uL (4.35-5.85); RED CELL DISTRIBUTION WIDTH 21.5 % (10.0-14.5)
[2017-04-07 09:28] LABS: ALANINE AMINOTRANSFERASE 41 U/L (0-55); ALBUMIN 2.5 G/DL (3.2-4.5); ANION GAP 7 MMOL/L (5-14); ASPARTATE AMINO TRANSFERASE 66 U/L (5-34); BILIRUBIN,TOTAL 1.3 MG/DL (0.1-1.0); BLOOD UREA NITROGEN 10 MG/DL (7-18); BUN/CREATININE RATIO 20; CALCIUM 7.9 MG/DL (8.5-10.1); CARBON DIOXIDE 26 MMOL/L (21-32); CHLORIDE 105 MMOL/L (98-107); CREATININE SERUM 0.51 MG/DL (0.60-1.30); GFR ESTIMATED > 60; GLUCOSE 121 MG/DL (70-105); POTASSIUM 3.3 MMOL/L (3.6-5.0); SODIUM 138 MMOL/L (135-145); TOTAL PROTEIN 4.7 G/DL (6.4-8.2)
[2017-04-15 08:50] LABS: BASOPHILS % (AUTO) 1 % (0-10); EOSINOPHILS % (AUTO) 0 % (0-10); LYMPHOCYTES # (AUTO) 0.6 X 10^3 (1.0-4.0); LYMPHOCYTES % (AUTO) 22 % (12-44); MEAN CORPUSCULAR HEMOGLOBIN 33 PG (25-34); MEAN CORPUSCULAR HGB CONC 32 G/DL (32-36); MEAN CORPUSCULAR VOLUME 103 FL (80-99); MEAN PLATELET VOLUME 9.8 FL (7.4-10.4); MONOCYTES # (AUTO) 1.1 X 10^3 (0.0-1.0); MONOCYTES % (AUTO) 41 % (0-12); NEUTROPHILS # (AUTO) 0.9 X 10^3 (1.8-7.8); NEUTROPHILS % (AUTO) 36 % (42-75); PLATELET COUNT 89 10^3/uL (130-400); RED BLOOD COUNT 2.89 10^6/uL (4.35-5.85); RED CELL DISTRIBUTION WIDTH 22.8 % (10.0-14.5); WHITE BLOOD COUNT 2.6 10^3/uL (4.3-11.0)
[2017-04-15 09:33] LABS: ALANINE AMINOTRANSFERASE 46 U/L (0-55); ALBUMIN 2.4 G/DL (3.2-4.5); ANION GAP 9 MMOL/L (5-14); ASPARTATE AMINO TRANSFERASE 78 U/L (5-34); BLOOD UREA NITROGEN 9 MG/DL (7-18); BUN/CREATININE RATIO 16; CALCIUM 8.2 MG/DL (8.5-10.1); CARBON DIOXIDE 26 MMOL/L (21-32); CHLORIDE 103 MMOL/L (98-107); CREATININE SERUM 0.55 MG/DL (0.60-1.30); GFR ESTIMATED > 60; GLUCOSE 124 MG/DL (70-105); MAGNESIUM 1.4 MG/DL (1.8-2.4); POTASSIUM 3.6 MMOL/L (3.6-5.0); SODIUM 138 MMOL/L (135-145); TOTAL PROTEIN 4.8 G/DL (6.4-8.2)
[~2017-04-21] VITALS: Ht 171.4 cm; Wt 106.6 kg
[~2017-04-21 11:29] MED LIST changes: +MAGNESIUM SULFATE 2 GM in NS (IVPB) CANCER CENTER 100 ML IV ONE; +MAGNESIUM SULFATE IV ONE; +NS IV 500 ML (CANCER CENTER) IV SCH; +ONDANSETRON 16 MG, DEXAMETHASONE 10 MG/NS 50 ML IVPB IV SCH; +PALONOSETRON 0.25 MG, DEXAMETHASONE 10 MG/NS 50 ML IVPB IV PRN; +POTASSIUM CHL IV ONE; +[UNRECOGNIZED DRUG - MIXTURE] IV SCH; +[UNRECOGNIZED DRUG - MIXTURE] IV SCH; +[UNRECOGNIZED DRUG - MIXTURE] IV SCH; +[UNRECOGNIZED DRUG - MIXTURE] IV SCH; +[UNRECOGNIZED DRUG - OTHER] IV ONE
[2017-04-21 11:50] LABS: BASOPHILS % (AUTO) 0 % (0-10); EOSINOPHILS % (AUTO) 0 % (0-10); LYMPHOCYTES # (AUTO) 0.6 X 10^3 (1.0-4.0); LYMPHOCYTES % (AUTO) 5 % (12-44); MEAN CORPUSCULAR HEMOGLOBIN 33 PG (25-34); MEAN CORPUSCULAR HGB CONC 31 G/DL (32-36); MEAN CORPUSCULAR VOLUME 106 FL (80-99); MEAN PLATELET VOLUME 9.7 FL (7.4-10.4); MONOCYTES # (AUTO) 1.2 X 10^3 (0.0-1.0); MONOCYTES % (AUTO) 12 % (0-12); NEUTROPHILS # (AUTO) 8.5 X 10^3 (1.8-7.8); NEUTROPHILS % (AUTO) 83 % (42-75); PLATELET COUNT 61 10^3/uL (130-400); RED BLOOD COUNT 3.29 10^6/uL (4.35-5.85); RED CELL DISTRIBUTION WIDTH 24.5 % (10.0-14.5); WHITE BLOOD COUNT 10.3 10^3/uL (4.3-11.0)
[2017-04-21 12:19] LABS: ALANINE AMINOTRANSFERASE 54 U/L (0-55); ALBUMIN 2.4 G/DL (3.2-4.5); ANION GAP 8 MMOL/L (5-14); ASPARTATE AMINO TRANSFERASE 109 U/L (5-34); BILIRUBIN,TOTAL 4.7 MG/DL (0.1-1.0); BLOOD UREA NITROGEN 12 MG/DL (7-18); BUN/CREATININE RATIO 26; CALCIUM 8.1 MG/DL (8.5-10.1); CARBON DIOXIDE 26 MMOL/L (21-32); CHLORIDE 99 MMOL/L (98-107); CREATININE SERUM 0.47 MG/DL (0.60-1.30); GFR ESTIMATED > 60; GLUCOSE 85 MG/DL (70-105); MAGNESIUM 1.5 MG/DL (1.8-2.4); SODIUM 133 MMOL/L (135-145); TOTAL PROTEIN 4.9 G/DL (6.4-8.2)
--- NOTE | 2017-04-21 14:25 | Progress Note-Standard ---
Standard Progress Note Progress Notes/Assess & Plan Date Seen by Provider: Apr 21, 2017 Time Seen by Provider: 13:50 Progress/Assessment & Plan Called to Cancer Center for IV placement. Sarah RN to room with me with ultrasound machine. Unable to obtain an IV after 3 attempts. Tolerated well. GAEL GOZNALES CRNA Apr 21, 2017 14:25
--- NOTE | 2017-04-21 14:27 | Diagnostic Imaging Report ---
PA and lateral views of the chest. INDICATION: Shortness of breath. COMPARISON: 03/31/2016. FINDINGS: There are bilateral pleural effusions of small to moderate degree more prominent on the right side. Associated bibasilar atelectasis and infiltrates are seen. There is the interstitial thickening which may relate to vascular congestion. The heart size is not well assessed as it is obscured along its apex. There is a right internal jugular port terminating at the SVC level. The findings are overall similar to 03/31/2017 with slight overall worsening. IMPRESSION: Suggestion of vascular congestion with associated bilateral xxqfi-kx-enfepuaa effusions. Adjacent basilar opacities are likely atelectasis with possible superimposed pulmonary edema or pneumonia. Dictated by: Dictated on workstation # [id number]
[2017-04-21] MEDS ORDERED: CALC-654 PO (16:28)
[2017-04-21] MEDS ORDERED: OXYC10TA55 PO (16:28)
[2017-04-21] MEDS ORDERED: FURO20TA4 PO (16:28)
[2017-04-21] MEDS ORDERED: OMEP20CA12 PO (16:28)
[2017-04-21] MEDS ORDERED: OXYC5CAP18 PO (16:28)
[2017-04-21] MEDS ORDERED: MAGN400T6 PO (16:28)
[2017-04-21] MEDS ORDERED: DESO1TAB35 PO (16:28)
[2017-04-21] MEDS ORDERED: LORA10TA76 PO (16:28)
[2017-04-21] MEDS ORDERED: IBUP-2055 PO (16:28)
== END 2017-04-24 | disposition home or self-care (01) ==
LOC: ONC 11:29
PROVIDERS: ATTEND Internal Medicine Hematology & Oncology
DX: Z51.0 Encounter for antineoplastic radiation therapy (principal); Z51.11 Encounter for antineoplastic chemotherapy; C50.212 Malignant neoplasm of upper-inner quadrant of left female breast; I10 Essential (primary) hypertension; Z17.1 Estrogen receptor negative status [ER-]; Z79.899 Other long term (current) drug therapy; Z76.89 Persons encountering health services in other specified circumstances
CPT/HCPCS: 36591; 71020; 77290; 77295; 77332; 77334; 77336; 77417; 77470; 80048; 80053; 81000; 83735; 85025; 86300; 96360; 96366; 96367; 96375; 96409; 99213; 99214

== ENCOUNTER 2017-04-21 15:19 | Inpatient (IN) | payer BC ==
[~2017-04-21] VITALS: Ht 172.7 cm; Wt 111.6 kg
[~2017-04-21 15:19] MED LIST changes: -MAGNESIUM SULFATE 2 GM in NS (IVPB) CANCER CENTER 100 ML IV ONE; -MAGNESIUM SULFATE IV ONE; -NS IV 500 ML (CANCER CENTER) IV SCH; -ONDANSETRON 16 MG, DEXAMETHASONE 10 MG/NS 50 ML IVPB IV SCH; -PALONOSETRON 0.25 MG, DEXAMETHASONE 10 MG/NS 50 ML IVPB IV PRN; -POTASSIUM CHL IV ONE; -[UNRECOGNIZED DRUG - MIXTURE] IV SCH; -[UNRECOGNIZED DRUG - MIXTURE] IV SCH; -[UNRECOGNIZED DRUG - MIXTURE] IV SCH; -[UNRECOGNIZED DRUG - MIXTURE] IV SCH; -[UNRECOGNIZED DRUG - OTHER] IV ONE
[2017-04-21 15:35] VITALS: BP 152/97
[2017-04-21] MEDS ORDERED: MAGN400T6 PO (16:28)
[2017-04-21] MEDS ORDERED: OMEP20CA12 PO (16:28)
[2017-04-21] MEDS ORDERED: IBUP-2055 PO (16:28)
[2017-04-21] MEDS ORDERED: FURO20TA4 PO (16:28)
[2017-04-21] MEDS ORDERED: CALC-654 PO (16:28)
[2017-04-21] MEDS ORDERED: OXYC10TA55 PO (16:28)
[2017-04-21] MEDS ORDERED: OXYC5CAP18 PO (16:28)
[2017-04-21] MEDS ORDERED: DESO1TAB35 PO (16:28)
[2017-04-21] MEDS ORDERED: LORA10TA76 PO (16:28)
--- NOTE | 2017-04-21 17:40 | Progress Note-Standard ---
Standard Progress Note Progress Notes/Assess & Plan Date Seen by Provider: Apr 21, 2017 Time Seen by Provider: 17:36 Progress/Assessment & Plan 4 H&P dictated. This is a 51-year-old female with the history of metastatic triple negative left breast cancer who has been on palliative chemotherapy most recently with Halaven. Patient presented to the cancer center today with significant increase in shortness of breath over the past several days as well as significant edema. Unable to do a CT angiogram of the thorax for lack of a venous access. Patient does have a port but this is not a power port and could not be used for contrast injection. Chest x-ray showed bilateral moderate pleural effusions with the right side slightly worse than the left. I have contacted Dr. Graham for a diagnostic and therapeutic right thoracentesis as well as obtaining a venous access for contrast injection to do CT scans. Elevated liver function studies noted today with the liver ultrasound showing extensive liver metastatic disease. Full H&P has been dictated. TYRON CHAVEZ Apr 21, 2017 17:40
--- NOTE | 2017-04-21 17:53 | Diagnostic Imaging Report ---
INDICATION: Pleural effusion. TECHNIQUE: Multiple real time marques scale sonographic images were obtained of the right chest. CORRELATION STUDY: None FINDINGS: Ultrasound imaging is performed of the right chest which does demonstrate presence of right pleural effusion. An area marked for suitable thoracentesis was placed on the skin by the air support operations operator. Radiologist was not present at time of marking or procedure. IMPRESSION: 1.Right pleural effusion with marking performed for thoracentesis. Dictated by: Dictated on workstation # [id number]
[2017-04-21] MEDS: MAGNESIUM OXIDE (MAG-OX)400 MG TAB PO SCH (18:08)
[2017-04-21] MEDS: ENOXAPARIN 40 MG/0.4 ML (LOVENOX) SYR SC SCH (18:12)
[2017-04-21] MEDS: oxyCODONE ER 10 MG (OxyCONTIN CR) TAB PO SCH (18:29)
[2017-04-21] MEDS: morphine INJ 4 MG/ML 1 ML (VIAL/SYRINGE) IVP PRN ×2 (18:58→22:20)
[2017-04-21] MEDS ORDERED: CATHETER FLUSH 10 ML SYR IV PRN (19:00)
[2017-04-21 19:21] VITALS: BP 120/76
[2017-04-21] MEDS ORDERED: morphine INJ 4 MG/ML 1 ML (VIAL/SYRINGE) IV ONE (20:00)
[2017-04-21 21:46] LABS: BILIRUBIN,URINE 3+ (NEGATIVE); KETONES,URINE NEGATIVE (NEGATIVE); LEUKOCYTE ESTERASE ,URINE 1+ (NEGATIVE); NITRITE,URINE NEGATIVE (NEGATIVE); PH,URINE 6.5 (5-9); PROTEIN,URINE 2+ (NEGATIVE); UROBILINOGEN,URINE 8 MG/DL (NORMAL)
[2017-04-21 21:57] LABS: SQUAMOUS EPITHELIAL CELL,UR 0-2 /HPF; WBC,URINE 0-2 /HPF
[2017-04-21] MEDS: CATHETER FLUSH 10 ML SYR IV SCH (22:20)
[2017-04-22] VITALS: BP 130/76
[2017-04-22] MEDS ORDERED: morphine INJ 4 MG/ML 1 ML (VIAL/SYRINGE) IVP PRN (01:15)
--- NOTE | 2017-04-22 02:45 | HISTORY AND PHYSICAL ---
DATE OF SERVICE: 04/21/2017 The patient is admitted to room 415. PRESENTING COMPLAINT: Increasing shortness of breath. HISTORY OF PRESENT ILLNESS: The patient is a 51-year-old female with a history of metastatic breast cancer who is on palliative chemotherapy with Halaven. The patient contacted the Cancer Center today and indicated that she has had extreme shortness of breath since the last few days and is unable to walk more than 3 or 4 steps. She also complained of significant swelling in all her extremities. She was instructed to come to the Cancer Center and be evaluated. We attempted to obtain a CT angiogram, as her last CT of the abdomen for further evaluation, but could not obtain venous access. The patient does have a port, but this is not a Power Port and could not be used for injection of the contrast. Because of her significant symptoms and the chest x-ray showing moderate bilateral pleural effusion, it was decided to admit her to the hospital for further evaluation and management. PAST MEDICAL HISTORY: Significant for: 1. Diagnosis of stage II-B poorly differentiated triple negative left breast cancer in late 2014. She was treated with neoadjuvant chemotherapy using the Taxotere and Carboplatin regimen times 4 cycles, followed by Adriamycin and Cytoxan regimen times 4 cycles and underwent lumpectomy and axillar node dissection in late February 2016. She completed adjuvant radiation therapy following this. By June 2016, she was noted to have recurrent disease left axillar, left supraclavicular lymph node, hilar and mediastinal lymph nodes. Following this, she underwent chemotherapy with gemcitabine for 6 cycles, but had progressive disease. Since then, she has been on treatment with Halaven for 2 cycles. 2. Hypertension for approximately 12 years and is on treatment. 3. History of osteoarthritis involving major joints. PRIOR SURGERIES: Include: in 1985 and 1991, previous left breast lumpectomy in 2001 which was benign and she has had her lumpectomy and axillar node dissection in 2016. SOCIAL HISTORY: The patient is and [place] in [place] [facility]. She has 2 children, son age 31 years and a daughter age 25 years, both of whom live close by. Previously she was working in the [employer] department at [employer] since the last 15 years. Prior to that, she worked at [employer] for 12 years. No history of tobacco, alcohol or other recreational drug use. FAMILY HISTORY: Significant for her aunt with rectal cancer in her late 70s. Uncle was diagnosed with lung cancer while in his mid-70s. No malignancies or hematologic problems in the family that the patient knows of. PHYSICAL EXAMINATION: GENERAL: Today showed a middle-age female, weak appearing and in moderate respiratory distress, sitting in a wheel chair. HEENT: Normocephalic with alopecia, extraocular muscles intact, conjunctivae slightly pale, sclerae with mild icterus, oral mucosa moist. NECK: Supple with no JVD. No cervical lymphadenopathy palpable. Left supraclavicular lymph node is palpable. CHEST: Lungs with diminished breath sounds in both bases. No wheezes or rales heard. CARDIOVASCULAR: Borderline tachycardic, regular, without murmurs. ABDOMEN: Slightly distended, nontender, no hepatosplenomegaly or other masses palpable. EXTREMITIES: All 4 extremities showed 3+ edema. NEUROLOGICAL: No focal motor deficits. The patient is able to move all 4 extremities, but unable to ambulate because of dyspnea on exertion and fatigue. LABORATORY: CBC done at the Cancer Center today showed WBC 10.3, hemoglobin 10.9, platelet count 61,000 with neutrophil count of 8.5. Chemistry panel showed sodium level of 133 with the rest of the electrolytes normal. BUN was 12 and creatinine 0.47 with GFR more than 60 mL per minute. Magnesium was 1.5. Total bilirubin was elevated at 4.7, AST at 109, alkaline phosphatase at 507 and albumin was below normal at 2.4. Chest x-ray done today showed suggestion of vascular congestion with associated bilateral small to moderate pleural effusions. Adjacent basilar opacities are likely atelectasis with possible superimposed pulmonary edema or pneumonia. Ultrasound of the liver obtained today showed innumerable nodules within the liver replacing the parenchyma, compatible with metastasis. No intrahepatic biliary ductal dilatation evident. Gallbladder was not visible. Common bile duct is obscured by bowel gas. Moderate right pleural effusion noted. IMPRESSIONS: 1. Dyspnea on exertion of undetermined etiology. This could be related to bilateral moderate pleural effusions versus lymphatic spread of cancer versus heart failure versus pulmonary embolism versus other etiologies. 2. Metastatic triple negative breast cancer with multiple chemotherapies as mentioned in the history. The patient has evidence of progressive disease in the liver. PLANS: 1. I will admit the patient to the hospital. I will obtain a consultation with Dr. Graham for diagnostic and therapeutic thoracentesis, initially on the right side which has slightly more effusion than the left. 2. The patient will also need vascular access for contrast administration for CT scan. 3. The patient may need cardiac evaluation to rule out decreased left ventricular function causing the fluid retention/heart failure. 4. If she has evidence of significant progressive disease on the restaging CT scans, I will discuss about further options, which are extremely limited. 5. Elevated liver functions today, most likely due to progressive metastatic disease in the liver. 6. We will continue her home medications except supplements. 7. For deep venous thrombosis prophylaxis I will give her Lovenox 40 mg subcutaneous daily; but until there is definite evidence of deep venous thrombosis or pulmonary embolism, I will withhold full anticoagulation because of the thrombocytopenia. 8. Her overall prognosis is guarded. Job ID: [id number] DocumentID: [id number] Dictated Date: 04/21/2017 17:35:10 Commodity Industry Analyst Date: 04/21/2017 19:50:17 Dictated By: TYRON CHAVEZ MD
[2017-04-22 04:00] VITALS: BP 118/72
[2017-04-22] MEDS: morphine INJ 4 MG/ML 1 ML (VIAL/SYRINGE) IVP PRN ×6 (04:04→23:56)
[2017-04-22 05:05] LABS: BASOPHILS % (AUTO) 0 % (0-10); EOSINOPHILS % (AUTO) 0 % (0-10); LYMPHOCYTES # (AUTO) 0.7 X 10^3 (1.0-4.0); LYMPHOCYTES % (AUTO) 6 % (12-44); MEAN CORPUSCULAR HEMOGLOBIN 34 PG (25-34); MEAN CORPUSCULAR HGB CONC 32 G/DL (32-36); MEAN CORPUSCULAR VOLUME 105 FL (80-99); MONOCYTES # (AUTO) 1.6 X 10^3 (0.0-1.0); MONOCYTES % (AUTO) 14 % (0-12); NEUTROPHILS # (AUTO) 9.4 X 10^3 (1.8-7.8); NEUTROPHILS % (AUTO) 80 % (42-75); PLATELET COUNT 60 10^3/uL (130-400); RED BLOOD COUNT 3.13 10^6/uL (4.35-5.85); RED CELL DISTRIBUTION WIDTH 24.2 % (10.0-14.5); WHITE BLOOD COUNT 11.8 10^3/uL (4.3-11.0)
[2017-04-22 05:39] LABS: ALANINE AMINOTRANSFERASE 50 U/L (0-55); ALBUMIN 2.1 G/DL (3.2-4.5); ANION GAP 8 MMOL/L (5-14); ASPARTATE AMINO TRANSFERASE 106 U/L (5-34); BILIRUBIN,TOTAL 5.3 MG/DL (0.1-1.0); BLOOD UREA NITROGEN 12 MG/DL (7-18); BUN/CREATININE RATIO 24; CARBON DIOXIDE 27 MMOL/L (21-32); CHLORIDE 99 MMOL/L (98-107); CREATININE SERUM 0.49 MG/DL (0.60-1.30); GFR ESTIMATED > 60; GLUCOSE 76 MG/DL (70-105); MAGNESIUM 1.5 MG/DL (1.8-2.4); POTASSIUM 5.3 MMOL/L (3.6-5.0); SODIUM 134 MMOL/L (135-145); TOTAL PROTEIN 4.4 G/DL (6.4-8.2)
[2017-04-22] MEDS: KCL 20 MEQ TAB (K-DUR) PO SCH (05:54)
[2017-04-22] MEDS: PANTOPRAZOLE 40 MG (PROTONIX) TAB PO SCH (06:00)
[2017-04-22] MEDS: CATHETER FLUSH 10 ML SYR IV SCH ×3 (06:01→22:08)
--- NOTE | 2017-04-22 07:11 | OPERATIVE REPORT ---
DATE OF SERVICE: DATE OF PROCEDURE: 04/21/2017 PROCEDURE: Right thoracentesis. DIAGNOSIS: Metastatic breast carcinoma. SURGEON: Nancy Mir MD INDICATION FOR PROCEDURE: This lady is being managed for metastatic breast carcinoma. She was found to have symptoms of bilateral pleural effusion, right being larger, by radiologic evaluation. It was felt reasonable to perform therapeutic thoracentesis. Informed consent was obtained after reviewing the procedure in detail. DESCRIPTION OF PROCEDURE: The area of maximal effusion was marked by ultrasound guidance on the posterior aspect of her chest wall on the right side. She was sat up and the area prepared and draped in the usual sterile manner. Local anesthesia was achieved using 1% lidocaine. A 2 mm incision was made over the right 5th intercostal space and the effusion managed by Lixt-V-Oqkkiqie device. It was then connected to a vacuum-assisted collection bottle. She tolerated procedure reasonably well. Job ID: [id number] DocumentID: [id number] Dictated Date: 04/21/2017 18:14:41 Type Mapper Date: 04/22/2017 03:09:20 Dictated By: NANCY MIR MD [facility]
[2017-04-22 08:00] VITALS: BP 126/77
[2017-04-22] MEDS: MAGNESIUM OXIDE (MAG-OX)400 MG TAB PO SCH ×2 (08:13→17:31)
[2017-04-22] MEDS: FUROSEMIDE 40 MG (LASIX) TAB PO SCH (08:13)
[2017-04-22] MEDS: oxyCODONE ER 10 MG (OxyCONTIN CR) TAB PO SCH ×2 (08:13→20:00)
[2017-04-22] MEDS ORDERED: LIDOCAINE 1% INJ 20 ML (XYLOCAINE) VIAL INJ ONE (09:45)
[2017-04-22 10:27] LABS: INR 1.5 (0.8-1.4); PROTHROMBIN TIME PATIENT 17.7 SEC (12.2-14.7)
[2017-04-22 12:00] VITALS: BP 126/77
[2017-04-22] MEDS ORDERED: LIDOCAINE 1% INJ 20 ML (XYLOCAINE) VIAL ONE (13:23)
[2017-04-22] MEDS ORDERED: NS 100 ML (IVPB) BAG IV ONE ×2 (14:15→15:30)
[2017-04-22] MEDS ORDERED: IOHEXOL 350 MG/ML 150 ML (OMNIPAQUE 350) VIAL IV ONE ×2 (14:15→15:30)
[2017-04-22] MEDS ORDERED: CATHETER FLUSH 10 ML SYR IV PRN ×2 (14:15→15:30)
[2017-04-22] MEDS: ENOXAPARIN 40 MG/0.4 ML (LOVENOX) SYR SC SCH (16:02)
[2017-04-22 16:07] VITALS: BP 126/81
--- NOTE | 2017-04-22 16:24 | Pre-Procedure Progress Note ---
Pre-Procedure Progress Note H&P Reviewed The H&P was reviewed, patient examined and no changes noted. Date H&P Reviewed: Apr 22, 2017 Time H&P Reviewed: 13:00 Pre-Procedure Diagnosis: bilateral effusions, poor IV access thoracentesis on the left and left IJ venous line will be placed BETHANY REYES MD Apr 22, 2017 16:24
--- NOTE | 2017-04-22 16:48 | Diagnostic Imaging Report ---
EXAMINATION: Ultrasound guided drain placement -left lower. INDICATION: Left pleural effusion. CONSENT: Informed consent was obtained from the patient. The risks, benefits, potential complications and alternatives were reviewed and all questions answered to the patient's satisfaction. FINDINGS: Simple appearing large left pleural effusion with estimated amount of fluid at 940 mL. PROCEDURE: After sterile maximum barrier technique preparation and draping, 1% lidocaine was utilized for local anesthesia. An appropriate approach is selected based on preliminary scanning with ultrasound. A trocar technique for catheter insertion was performed utilizing ultrasound guidance into the left pleural cavity along the posterior inferior aspect of the effusion. Image of proper location of the needle is documented. Ultrasound images confirm appropriate positioning of the 6.5 Fijian drain and distal loop formed in the effusion. A 500 ml of slightly cloudy yellow fluid is aspirated and sent to microbiology. The drainage catheter is connected to suction type draining bag. The patient tolerated the procedure well with no immediate complications. IMPRESSION: Successful ultrasound-guided left pleural drain placement. Dictated by: Dictated on workstation # [id number]
--- NOTE | 2017-04-22 17:02 | Diagnostic Imaging Report ---
TECHNIQUE: CT angiogram of the chest with coronal and oblique MIP reconstruction technique images obtained. In addition, CT scan of the abdomen and pelvis is performed without and with intravenous contrast. INDICATION: History of metastatic breast cancer. Shortness of breath. Elevated LFTs. FINDINGS: CTA CHEST: The pulmonary arteries demonstrate good opacification with no filling defects to suggest pulmonary embolism. There is bilateral wmyburcf-il-zswfd pleural effusion with associated lower lobe atelectasis bilaterally. There is a left pleural drain seen with the distal loop in the posteroinferior aspect of the pleural cavity. There is a new irregular nodule or consolidation measuring 2 cm in the right upper lobe and ground-glass opacities around the lower lobes which could be related to pneumonitis or metastases. There is also nodularity along the subpleural aspect of the anterior portion of the left upper lobe; uncertain if this is related to subpleural nodules or atelectasis. The heart size is normal. No pericardial effusion. No lymphadenopathy in the mediastinum, krystin, or the right axilla. In the left axillary tail of the breast, there is a 2.8 x 3 cm mass, similar in size compared to the previous study. The osseous structures demonstrate sclerotic lesions in a diffuse fashion compatible with metastases. There is no definite change when compared to the previous exam. CT ABDOMEN AND PELVIS: There are innumerable metastases seen in the liver. These are not clearly seen on the previous exam of 03/05/17, although in retrospect heterogeneity and early nodules might be appreciated. There is also better enhancement of the background liver at this time which facilitates visualization of these lesions on the current scan. There are multiple gallstones seen with pericholecystic fluid seen. This could be extending from the xfhgh-bg-lkbrblvq amount of ascites seen in the abdomen and upper pelvis. The spleen is not enlarged. The adrenals appear unremarkable. The pancreas demonstrates nonspecific heterogeneity in the pancreatic head region with no discrete mass. The kidneys have symmetric enhancement and contrast excretion without hydronephrosis. The unenhanced phase demonstrates no kidney stones. The abdominal aorta is normal in caliber. No para-aortic significantly enlarged lymph node is seen. The previously seen enlarged nodes on exam from 12/23/2016 in the retrocaval location are from not appreciated on the current study. No pelvic significantly enlarged lymph nodes. In the pelvis, the adnexa and uterus appear grossly unremarkable. Nonspecific mild distention of the urinary bladder is seen with no focal lesion. The osseous structures demonstrate sclerotic lesions in the lumbar spine, which appear worse compared to 12/23/16. There are also multiple pelvic sclerotic lesions noted. IMPRESSION: CTA CHEST: 1. No evidence of pulmonary embolism. 2. Bilateral large pleural effusions. Pleural drainage tube on the left is in place. 3. Sclerotic thoracic spine metastases. CT ABDOMEN AND PELVIS: 1. Development of innumerable liver metastases. 2. Xajwn-cx-gdosmgnc ascites. 3. Multiple gallstones with gallbladder wall thickening and adjacent fluid, probably extension of the ascitic fluid. 4. Increased sclerotic bone metastases. Dictated by: Dictated on workstation # [id number]
--- NOTE | 2017-04-22 17:53 | Diagnostic Imaging Report ---
EXAMINATION: Central line placement with fluoroscopy guidance. INDICATION: Metastatic breast cancer with diffuse body edema and inability to obtain peripheral access. The patient has a port however the port is not power injectable and not suitable for CT scan. Current history and physical and other medical records are reviewed prior to the procedure. Fluoroscopy time utilized is 14 seconds. CONSENT: Informed consent was obtained from the patient. The risks, benefits, potential complications and alternatives were reviewed and all questions answered to the patient's satisfaction. The patient's vital signs, cardiac rhythm, and pulse oximetry with observed throughout the procedure by qualified nursing personnel. Sedation/medications: None. PROCEDURE: After maximal sterile barrier technique preparation and draping, 1% lidocaine was utilized for local anesthesia. Ultrasound examination was utilized and the left internal jugular vein was located and access was performed with ultrasound. Through the 19-gauge access needed in the left internal jugular vein, an 0.035 wire is passed through the needle into the vein and eventually into the IVC as confirmed with fluoroscopy image. Then, the needle was removed and tract dilatation was performed. Subsequently, a triple-lumen catheter is introduced with the tip left at the cavoatrial junction. Fluoroscopic image is saved. No immediate complications. The central line was fixed in place using 4-0 silk sutures. The patient tolerated the procedure well with no immediate complications. IMPRESSION: Successful placement of a left IJ triple-lumen central venous line. Dictated by: Dictated on workstation # [id number]
--- NOTE | 2017-04-22 18:11 | Progress Note-Standard ---
Standard Progress Note Progress Notes/Assess & Plan Date Seen by Provider: Apr 22, 2017 Time Seen by Provider: 17:56 Progress/Assessment & Plan 51-year-old female with the history of metastatic triple negative left breast cancer who has been on palliative chemotherapy most recently with [facility]. Patient presented to the cancer center with significant increase in shortness of breath over the past several days as well as significant edema. Admission chest x-ray with bilateral pleural effusions. Patient underwent therapeutic right thoracentesis yesterday with 1900 mL removed. She completed a CT angiogram and CT scan of the abdomen and pelvis today. She also had a left- sided chest tube placed today which is draining straw-colored fluid. She is breathing better. Pain is under better control. She is requiring morphine 4 mg IV every 3-4 hours today in addition to her long-acting pain medication. Vital Sign - Last 12Hours Date Time Temp Pulse Resp B/P (MAP) Pulse Ox O2 Delivery O2 Flow Rate FiO2 04/22/17 17:10 1.50 04/22/17 16:07 98.4 123 18 126/81 89 Physical examination today showed a middle-aged female, weak-appearing, in mild distress at the time of evaluation. HEENT normocephalic with alopecia, extraocular muscles intact, conjunctivae slightly pale, sclera icteric, oral mucosa moist. Neck was supple with no JVD. Left supraclavicular and axillary fullness/mass present. Chest examination showed the left subclavian triple-lumen catheter present. Left -sided chest tube draining straw-colored fluid. Lungs with diminished or absent sounds in the bases. No wheezes or rales heard. Cardiovascular exam was borderline tachycardic, regular with no murmurs or gallops heard. Abdomen was slightly distended, soft, nontender with no hepatosplenomegaly or other masses palpable. Extremities showed 3-4+ edema in all extremities. Neurologic examination showed no focal motor deficits. Laboratory Tests 04/21/17 21:35: Urine Color AMBERH, Urine Clarity SLIGHTLY CLOUDY, Urine pH 6.5, Urine Specific Victor 1.015L, Urine Protein 2+H, Urine Glucose (UA) NEGATIVE, Urine Ketones NEGATIVE, Urine Nitrite NEGATIVE, Urine Bilirubin 3+H, Urine Urobilinogen 8H, Urine Leukocyte Esterase 1+H, Urine RBC (Auto) NEGATIVE, Urine RBC NONE, Urine WBC 0-2, Urine Squamous Epithelial Cells 0-2, Urine Crystals NONE, Urine Bacteria FEWH, Urine Casts NONE, Urine Mucus SMALLH, Urine Culture Indicated NO 04/22/17 05:00: White Blood Count 11.8H, Red Blood Count 3.13L, Hemoglobin 10.6L, Hematocrit 33L , Mean Corpuscular Volume 105H, Mean Corpuscular Hemoglobin 34, Mean Corpuscular Hemoglobin Concent 32, Red Cell Distribution Width 24.2H, Platelet Count 60L, Mean Platelet Volume 12.0H, Neutrophils (%) (Auto) 80H, Lymphocytes ( %) (Auto) 6L, Monocytes (%) (Auto) 14H, Eosinophils (%) (Auto) 0, Basophils (%) (Auto) 0, Neutrophils # (Auto) 9.4H, Lymphocytes # (Auto) 0.7L, Monocytes # ( Auto) 1.6H, Eosinophils # (Auto) 0.0, Basophils # (Auto) 0.0, Sodium Level 134L , Potassium Level 5.3H, Chloride Level 99, Carbon Dioxide Level 27, Anion Gap 8 , Blood Urea Nitrogen 12, Creatinine 0.49L, Estimat Glomerular Filtration Rate > 60, BUN/Creatinine Ratio 24, Glucose Level 76, Calcium Level 8.0L, Magnesium Level 1.5L, Total Bilirubin 5.3H, Aspartate Amino Transf (AST/SGOT) 106H, Alanine Aminotransferase (ALT/SGPT) 50, Alkaline Phosphatase 594H, Total Protein 4.4L, Albumin 2.1L 04/22/17 10:07: Prothrombin Time 17.7H, INR Comment 1.5H, Activated Partial Thromboplast Time 33 CT angiogram of the thorax with no evidence of the PE. Probable right upper lobe nodule. Bilateral pleural effusions with left sided catheter present. CT scan of the abdomen showing numerous enhancing lesions in both lobes of liver. Mild intrahepatic biliary ductal dilatation with no dilatation of the common bile duct. Few stones in the gallbladder. Ascites present. Impression: 1. Significant shortness of breath due to bilateral pleural effusions, status post right thoracentesis yesterday with 1900 mL of fluid removed. Left chest tube placement today with continued drainage. Patient is breathing slightly better today. 2. Metastatic triple negative left breast cancer with multiple lines of treatment. Patient has progressive disease now and we will stop the current chemotherapy. There are no good treatment options available and I have initiated the discussion about best supportive care with the patient and her family. The receptor T of to this idea and we will continue the conversation. 3. Worsening liver function most likely due to metastatic breast cancer to the liver and intrahepatic cholestasis. Continue to monitor. 4. Anasarca and ascites, most likely due to hypoalbuminemia and liver dysfunction. Currently she is on Lasix, potassium and magnesium. I'll continue this and consider adding in Aldactone. 5. Overall prognosis is poor. TYRON CHAVEZ Apr 22, 2017 18:11
--- NOTE | 2017-04-22 18:26 | Diagnostic Imaging Report ---
EXAM: Ultrasound guidance for vascular access. INDICATION: Central line placement for a patient with peripheral IV access. FINDINGS: The left internal jugular vein is compressible and patent and is suitable for access based on initial examination. Live ultrasound guidance is utilized for needle puncture into the left internal jugular vein. Image saved with the needle position in the left IJ vein is recorded. IMPRESSION: Ultrasound guidance utilized for needle access into the left internal jugular vein. Dictated by: Dictated on workstation # [id number]
[2017-04-22 19:03] VITALS: BP 121/74
[2017-04-23] VITALS: BP 130/71
[2017-04-23 04:00] VITALS: BP 123/71
[2017-04-23 05:16] LABS: BASOPHILS % (AUTO) 0 % (0-10); EOSINOPHILS % (AUTO) 0 % (0-10); LYMPHOCYTES # (AUTO) 0.6 X 10^3 (1.0-4.0); LYMPHOCYTES % (AUTO) 5 % (12-44); MEAN CORPUSCULAR HEMOGLOBIN 34 PG (25-34); MEAN CORPUSCULAR HGB CONC 33 G/DL (32-36); MEAN CORPUSCULAR VOLUME 103 FL (80-99); MONOCYTES # (AUTO) 1.6 X 10^3 (0.0-1.0); MONOCYTES % (AUTO) 12 % (0-12); NEUTROPHILS # (AUTO) 11.1 X 10^3 (1.8-7.8); NEUTROPHILS % (AUTO) 83 % (42-75); PLATELET COUNT 64 10^3/uL (130-400); RED BLOOD COUNT 3.12 10^6/uL (4.35-5.85); RED CELL DISTRIBUTION WIDTH 24.1 % (10.0-14.5); WHITE BLOOD COUNT 13.3 10^3/uL (4.3-11.0)
[2017-04-23 05:36] LABS: ALANINE AMINOTRANSFERASE 51 U/L (0-55); ANION GAP 9 MMOL/L (5-14); ASPARTATE AMINO TRANSFERASE 99 U/L (5-34); BILIRUBIN,TOTAL 5.8 MG/DL (0.1-1.0); BLOOD UREA NITROGEN 17 MG/DL (7-18); BUN/CREATININE RATIO 32; CALCIUM 7.9 MG/DL (8.5-10.1); CARBON DIOXIDE 25 MMOL/L (21-32); CHLORIDE 99 MMOL/L (98-107); CREATININE SERUM 0.53 MG/DL (0.60-1.30); GFR ESTIMATED > 60; GLUCOSE 72 MG/DL (70-105); MAGNESIUM 1.7 MG/DL (1.8-2.4); POTASSIUM 5.3 MMOL/L (3.6-5.0); SODIUM 133 MMOL/L (135-145); TOTAL PROTEIN 4.1 G/DL (6.4-8.2)
[2017-04-23] MEDS: KCL 20 MEQ TAB (K-DUR) PO SCH (05:56)
[2017-04-23] MEDS: morphine INJ 4 MG/ML 1 ML (VIAL/SYRINGE) IVP PRN ×6 (05:57→22:38)
[2017-04-23] MEDS: CATHETER FLUSH 10 ML SYR IV SCH ×3 (06:01→22:00)
[2017-04-23] MEDS: PANTOPRAZOLE 40 MG (PROTONIX) TAB PO SCH (06:01)
[2017-04-23 08:00] VITALS: BP 115/65
[2017-04-23] MEDS: oxyCODONE ER 10 MG (OxyCONTIN CR) TAB PO SCH ×2 (08:10→20:19)
[2017-04-23] MEDS: MAGNESIUM OXIDE (MAG-OX)400 MG TAB PO SCH ×2 (08:10→18:20)
[2017-04-23] MEDS: FUROSEMIDE 40 MG (LASIX) TAB PO SCH (08:11)
[2017-04-23 12:00] VITALS: BP 102/63
--- NOTE | 2017-04-23 14:48 | Diagnostic Imaging Report ---
EXAMINATION: Whole body bone scan. TECHNIQUE: After the intravenous administration of 26.4 mCi of Technetium 99m MDP, whole body delayed phase bone scan images were obtained with lateral views of the head, neck, and chest regions. INDICATION: Back pain. Metastatic breast cancer. COMPARISON: 12/23/2016. FINDINGS: There is an interval decrease in the intensity of uptake along the thoracic spine lesions seen previously. Sclerotic lesions are seen on the CT scan. The change is perhaps related to treatment effect. Slight heterogeneity in the uptake within the sternum is probably related to metastatic disease as correlating sclerotic areas are seen on the CT scan. There is some foci of rib activity seen as well, similar to the prior exam. No definite new lesion is seen. IMPRESSION: Multiple lesions in the thoracic spine, ribs, and sternum are suggestive of metastasis. The thoracic spine lesions are less intense compared to the prior study, presumably from treatment effect. Dictated by: Dictated on workstation # [id number]
[2017-04-23 15:50] VITALS: BP 125/74
--- NOTE | 2017-04-23 16:38 | Progress Note-Standard ---
Standard Progress Note Progress Notes/Assess & Plan Date Seen by Provider: Apr 23, 2017 Time Seen by Provider: 16:25 Progress/Assessment & Plan 51-year-old female with the history of metastatic triple negative left breast cancer who has been on palliative chemotherapy most recently with [place]. Patient presented to the cancer center with significant increase in shortness of breath over the past several days as well as significant edema. Admission chest x-ray with bilateral pleural effusions. Patient underwent therapeutic right thoracentesis with [address]ogram and CT scan of the abdomen and pelvis showed no evidence of PE but significant increase in liver disease. She also had a left-sided chest tube placed which is draining straw- colored fluid approximately 100 ml in the past 8 hours. She is breathing better. Pain is under better control. She is somnolent but arousable. Having difficulty getting up due to fatigue. Not eating much, no bowel movements. Vital Sign - Last 12Hours Date Time Temp Pulse Resp B/P (MAP) Pulse Ox O2 Delivery O2 Flow Rate FiO2 04/23/17 12:00 98.5 140 20 102/63 91 2.00 Physical examination today showed a middle-aged female, weak-appearing, somnolent but arousable. In no acute distress at the time of evaluation.. HEENT normocephalic with alopecia, extraocular muscles intact, conjunctivae slightly pale, sclera icteric, oral mucosa slightly dry. Neck was supple with no JVD. Left supraclavicular and axillary fullness/mass present. Chest examination showed the left subclavian triple-lumen catheter present. Right sided port present. Left-sided chest tube present draining straw-colored fluid. Lungs with diminished or absent sounds in the bases. No wheezes or rales heard. Cardiovascular exam was tachycardic, regular with no murmurs or gallops heard. Abdomen was slightly distended, soft, nontender with no hepatosplenomegaly or other masses palpable. Extremities showed 3-4+ edema in all extremities. Neurologic examination showed no focal motor deficits. Laboratory Tests 04/23/17 05:10: White Blood Count 13.3H, Red Blood Count 3.12L, Hemoglobin 10.5L, Hematocrit 32L , Mean Corpuscular Volume 103H, Mean Corpuscular Hemoglobin 34, Mean Corpuscular Hemoglobin Concent 33, Red Cell Distribution Width 24.1H, Platelet Count 64L, Mean Platelet Volume 11.0H, Neutrophils (%) (Auto) 83H, Lymphocytes ( %) (Auto) 5L, Monocytes (%) (Auto) 12, Eosinophils (%) (Auto) 0, Basophils (%) ( Auto) 0, Neutrophils # (Auto) 11.1H, Lymphocytes # (Auto) 0.6L, Monocytes # ( Auto) 1.6H, Eosinophils # (Auto) 0.0, Basophils # (Auto) 0.0, Sodium Level 133L , Potassium Level 5.3H, Chloride Level 99, Carbon Dioxide Level 25, Anion Gap 9 , Blood Urea Nitrogen 17, Creatinine 0.53L, Estimat Glomerular Filtration Rate > 60, BUN/Creatinine Ratio 32, Glucose Level 72, Calcium Level 7.9L, Magnesium Level 1.7L, Total Bilirubin 5.8H, Aspartate Amino Transf (AST/SGOT) 99H, Alanine Aminotransferase (ALT/SGPT) 51, Alkaline Phosphatase 630H, Total Protein 4.1L, Albumin 2.0L Whole body bone scan showed diffuse metastatic disease which was stable with some areas better ( due to radiation) Impression: 1. Significant shortness of breath due to bilateral pleural effusions, status post right thoracentesis with 1900 mL of fluid removed. Left chest tube with continued drainage. Patient is breathing better and resting better today. 2. Metastatic triple negative left breast cancer with multiple lines of treatment. Patient has progressive disease now and we will stop the current chemotherapy. There are no good treatment options available. Discussed about code status. Patient and her family agreed that they do not want resuscitation. Will order DNR. 3. Worsening liver function most likely due to metastatic breast cancer to the liver and intrahepatic cholestasis. Continue to monitor. 4. Anasarca and ascites, most likely due to hypoalbuminemia and liver dysfunction. Currently she is on Lasix, potassium and magnesium. Antony catheter for comfort. 5. Constipation probably due to increased narcotic use and poor oral intake. Add Miralax. Overall prognosis is poor. TYRON CHAVEZ Apr 23, 2017 16:38
[2017-04-23] MEDS: ENOXAPARIN 40 MG/0.4 ML (LOVENOX) SYR SC SCH (17:02)
[2017-04-23 20:00] VITALS: BP 116/72
[2017-04-23] MEDS ORDERED: POLYETHYLENE GLYCOL 17 GM (MIRALAX) PACK PO SCH (21:00)
[2017-04-24] VITALS: BP 113/62
[2017-04-24 04:25] VITALS: BP 116/59
[2017-04-24] MEDS: morphine INJ 4 MG/ML 1 ML (VIAL/SYRINGE) IVP PRN ×4 (04:54→12:17)
[2017-04-24 06:00] LABS: ALANINE AMINOTRANSFERASE 67 U/L (0-55); ALBUMIN 1.9 G/DL (3.2-4.5); ANION GAP 11 MMOL/L (5-14); ASPARTATE AMINO TRANSFERASE 152 U/L (5-34); BLOOD UREA NITROGEN 30 MG/DL (7-18); BUN/CREATININE RATIO 45; CALCIUM 8.1 MG/DL (8.5-10.1); CARBON DIOXIDE 24 MMOL/L (21-32); CHLORIDE 98 MMOL/L (98-107); CREATININE SERUM 0.67 MG/DL (0.60-1.30); GFR ESTIMATED > 60; GLUCOSE 67 MG/DL (70-105); POTASSIUM 5.6 MMOL/L (3.6-5.0); SODIUM 133 MMOL/L (135-145)
[2017-04-24] MEDS: PANTOPRAZOLE 40 MG (PROTONIX) TAB PO SCH ×2 (06:14→07:00)
[2017-04-24] MEDS: CATHETER FLUSH 10 ML SYR IV SCH ×3 (06:15→22:12)
[2017-04-24] MEDS: KCL 20 MEQ TAB (K-DUR) PO SCH (06:21)
[2017-04-24 08:00] VITALS: BP 87/50
[2017-04-24] MEDS: MAGNESIUM OXIDE (MAG-OX)400 MG TAB PO SCH (09:40)
[2017-04-24] MEDS: oxyCODONE ER 10 MG (OxyCONTIN CR) TAB PO SCH (09:41)
[2017-04-24] MEDS: FUROSEMIDE 40 MG (LASIX) TAB PO SCH (09:41)
[2017-04-24] MEDS ORDERED: morphine PCA 30 MG/30 ML VIAL IV PRN (13:15)
[2017-04-24] MEDS ORDERED: SCOPOLAMINE 1.5 MG (TRANSDERM-SCOP) PATCH TOP SCH (13:15)
--- NOTE | 2017-04-24 13:19 | Progress Note-Standard ---
Standard Progress Note Progress Notes/Assess & Plan Date Seen by Provider: Apr 24, 2017 Time Seen by Provider: 13:11 Progress/Assessment & Plan 51-year-old female with the history of metastatic triple negative left breast cancer who has been on palliative chemotherapy most recently with [place]. Patient presented to the cancer center with significant increase in shortness of breath over the past several days as well as significant edema. Admission chest x-ray with bilateral pleural effusions. Patient underwent therapeutic right and left thoracentesis with the improvement in respirations. Her liver function studies were elevated at the time of admission and liver ultrasound as well as CT scans were obtained which showed significant progression in metastatic disease in the liver with probable intrahepatic cholestasis. The liver function studies have been worsening daily. She is requiring more pain medications and the last 12-24 hours. She is somnolent and the difficult to arouse today. When she wakes up she is in discomfort according to family members. She is also having gurgling. Her family members including extended family present in the room. They understand the poor prognosis. She is unable to take oral medications today. I will discontinue oral medications. I will start her on a morphine LANCE CREWMEMBER at 2 mg/h continuous infusion with 2 mg bolus every 30 minutes as needed. I will also start her on scopolamine patch 1.5 mg every 72 hours to decrease the secretions. Patient is terminal and we will continue with best supportive care. Family understands this and concur. Dr. Millard is covering for me until 05/01/2017. Impression: 1. Significant shortness of breath due to bilateral pleural effusions, status post right thoracentesis and left chest tube with continued drainage. Patient is breathing better and resting better today. 2. Metastatic triple negative left breast cancer with multiple lines of treatment. Patient has progressive disease now and we will stop chemotherapy. There are no good treatment options available. continue DO NOT RESUSCITATE and best supportive care. We will start her on morphine LANCE CREWMEMBER at 2 mg/h continuous infusion with 2 mg bolus every 30 minutes as needed. I will also start her on scopolamine patch because of secretions. 3. Worsening liver function most likely due to metastatic breast cancer to the liver and intrahepatic cholestasis. I will not order lab work on a regular basis anymore. 4. Anasarca and ascites, most likely due to hypoalbuminemia and liver dysfunction. Antony catheter for comfort. 5. patient is terminal and family understands this. We will continue with best supportive care. TYRON CHAVEZ Apr 24, 2017 13:19
[2017-04-24] MEDS ORDERED: NS IV 500 ML 500 ML IV SCH (13:30)
[2017-04-24 16:00] VITALS: BP 91/54
[2017-04-24] MEDS: ENOXAPARIN 40 MG/0.4 ML (LOVENOX) SYR SC SCH (16:56)
[2017-04-25] MEDS ORDERED: PANTOPRAZOLE 40 MG/10 ML (PROTONIX) VIAL IV SCH (09:00)
[2017-04-27] MEDS ORDERED: SCOPOLAMINE PATCH REMOVAL TP SCH (13:15)
== END 2017-04-24 22:45 | disposition expired | DRG 186 ==
LOC: 4TH 15:19
PROVIDERS: ADMIT Internal Medicine Hematology & Oncology; ATTEND Internal Medicine Hematology & Oncology
PROC: 0W9930Z Drainage of Right Pleural Cavity with Drainage Device, Percutaneous Approach (ICD-10-PCS; principal; 2017-04-21)
DX: J90 Pleural effusion, not elsewhere classified (principal); C50.912 Malignant neoplasm of unspecified site of left female breast; C78.7 Secondary malignant neoplasm of liver and intrahepatic bile duct; K83.1 Obstruction of bile duct; I10 Essential (primary) hypertension; Z66 Do not resuscitate; Z51.5 Encounter for palliative care; E88.09 Other disorders of plasma-protein metabolism, not elsewhere classified; R18.8 Other ascites; K59.00 Constipation, unspecified
CPT/HCPCS: 32555; 36415; 71275; 74170; 76604; 76937; 78306; 80053; 81000; 83735; 85025; 85610; 85730